=== PATIENT | female | born 1955 | race Caucasian/White ===

== ENCOUNTER 2017-02-02 12:18 | Inpatient (IN) | payer OTHER ==
[~2017-02-02] VITALS: Ht 170.2 cm; Wt 81.1 kg
[2017-02-02] VITALS (20 sets, daily range): BP systolic 95–121; BP diastolic 50–80; PULSE 50–74; RESP 9–35; BMI 30.7
[2017-02-02] MEDS ORDERED: BUTA1CAP38 PO (12:45)
[2017-02-02] MEDS ORDERED: METR250T19 PO (12:46)
[2017-02-02] MEDS ORDERED: LEVO250T9 PO (12:46)
[2017-02-02] MEDS ORDERED: D5-NS + KCL 20 MEQ 1,000 ML IV SCH (14:00)
[2017-02-02] MEDS ORDERED: CEFAZOLIN 2 GM/50 ML (PMX) 50 ML IVPB ONE (14:00)
[2017-02-02] MEDS ORDERED: metroNIDAZOLE 500 MG/NS (PMX) 100 ML IVPB ONE ×2 (14:00→15:27)
[2017-02-02] MEDS ORDERED: MIDAZOLAM 1 MG/ML 2 ML INJ ONE (14:28)
[2017-02-02] MEDS ORDERED: PROPOFOL 100 ML ONE ×2 (14:28→19:09)
[2017-02-02] MEDS ORDERED: ROCURONIUM 50 MG INJ ONE ×3 (14:28→20:34)
[2017-02-02] MEDS ORDERED: morphine SULFATE/PF (10 MG/10 ML) INJ ONE (15:27)
[2017-02-02] MEDS ORDERED: CEFAZOLIN 1 GM INJ ONE ×2 (15:27→19:41)
--- NOTE | 2017-02-02 15:27 | HP ---
Date/Time of Note Date/Time of Note DATE: 02/02/17 TIME: 15:27 Assessment/Plan VTE Prophylaxis VTE Prophylaxis Intervention: SCD's HPI/ROS Admit Date/Time Admit Date/Time February 02, 2017 at 12:18 ROS Hima Mitchell M.D. 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 The mass is complex and predominantly cystic and present since before Aug. Medical history/ROS: all other systems unremarkable. Surgical history: Appy. Medications: 01/14/17 hydrochlorothiazide 25 mg tablet 1 tablet by mouth as directed 01/14/17 Plaquenil 200 mg tablet 1 tablet by mouth BID gardisil Allergies: No active allergies recorded Family Hx: non-contributary Social HX: non-contributary ROS: as above Colonoscopy Physical Examination Vitals (02/02/2017): Weight 201, Height 66.75, BP 120/80, BMI 32.4. General: Alert. HEENT: Pupils are equal, round, reactive to light and accommodation. Neck: Supple with no masses of lymphadenopathy. Breast: Deferred due to recent examination and responsibility of primary care physician. Chest: Clear to auscultation Heart: Normal rhythm with no murmur. Abdomen: Non tender, no ascites nor organomeglay but large pelvic abd mass. Pelvic exam: Central large cystic mass, no cul-de-sac nodularity noted Rectal: confirmatory with pelvic exam. Neurological: Grossly intact Assessment: Pelvic-abdominal mass Plan:Laparoscopic BSO, possible UDx2 possible LSH, possible staging, possible open with cytoreduction. All risks and benefits of this procedure have been discussed in detail with the patient, as well as alternative treatment strategies and their implications. The patient is aware that there is some possibility of a blood transfusion and its associated risks and benefits. She wishes to proceed and gives her informed consent. Hima Mitchell M.D. PMH/Family/Social Social History Smoking Status: Never smoker Exam/Review of Systems Medications Medications Current Medications Potassium Chloride/Dextrose/ Sod Cl (D5-NS + KCl 20 Meq) 1,000 ml @ 100 mls/hr Q10H IV ; Start 02/02/17 at 14:00; Stop 02/02/17 at 23:59 HIMA MITCHELL MD February 02, 2017 15:27
[2017-02-02] MEDS ORDERED: THROMBIN 5000 UNIT VIAL ONE (15:28)
--- NOTE | 2017-02-02 15:28 | HPN ---
Date/Time of Note Date/Time of Note DATE: 02/02/17 TIME: 15:28 Interval H&P Admission Note Pt. seen H&P reviewed: No system changes CALE MITCHELL MD February 02, 2017 15:28
[2017-02-02] MEDS ORDERED: VASOPRESSIN 20 UNITS INJ ONE (15:29)
[2017-02-02] MEDS ORDERED: METHYLENE BLUE 1% 10 ML INJ ONE (15:29)
[2017-02-02] MEDS ORDERED: PHENYLephrine (100 MCG/ML) 5ML SYG ONE ×2 (16:28→19:24)
[2017-02-02] MEDS ORDERED: ONDANSETRON 4 MG INJ IV PRN (17:00)
[2017-02-02] MEDS ORDERED: FENTAnyl 50 MCG/ML VIAL IV PRN ×2 (17:00)
[2017-02-02] MEDS ORDERED: DIPHENHYDRAMINE 50 MG INJ IV PRN ×2 (17:00)
[2017-02-02] MEDS ORDERED: morphine 2 MG INJ IV PRN (17:00)
[2017-02-02] MEDS ORDERED: ALBUMIN HUMAN 5% 250 ML IV PRN (17:00)
[2017-02-02] MEDS ORDERED: NALOXONE (0.4 MG/ML) INJ IV PRN (17:00)
[2017-02-02] MEDS ORDERED: morphine 4 MG/ML VIAL IV PRN (17:00)
[2017-02-02] MEDS ORDERED: LABETALOL HCL 20MG INJ IV PRN (17:00)
[2017-02-02] MEDS ORDERED: MEPERIDINE 25 MG INJ IV PRN (17:00)
[2017-02-02] MEDS ORDERED: NALBUPHINE HCL (10 MG/1 ML) INJ IV PRN (17:00)
[2017-02-02] MEDS ORDERED: EPHEDrine SULFATE 50 MG/5 ML SYG IV PRN (17:00)
[2017-02-02] MEDS ORDERED: HYDROmorphONE 1 MG/ML SYG IV PRN ×2 (17:00)
[2017-02-02] MEDS ORDERED: METOCLOPRAMIDE 10 MG INJ ONE (18:59)
[2017-02-02] MEDS ORDERED: DEXAMETHASONE 4 MG/ML 1 ML INJ ONE (18:59)
[2017-02-02] MEDS ORDERED: ONDANSETRON 4 MG INJ ONE (18:59)
[2017-02-02] MEDS ORDERED: PROPOFOL 20 ML ONE (19:09)
[2017-02-02] MEDS ORDERED: GLYCOPYRROLATE 0.4 MG INJ ONE (21:10)
[2017-02-02] MEDS ORDERED: NEOSTIGMINE 3 MG/3 ML SYRINGE ONE (21:10)
[2017-02-02] MEDS ORDERED: CEFAZOLIN 1 GM in SOD CHLORIDE 0.9% 100 ML IVPB SCH (21:30)
[2017-02-02 21:45] LABS: ADD SCAN DIFF NO
[2017-02-02 21:48] LABS: BASOPHILS % 0.1 % (0.0-2.0); HEMATOCRIT 30.9 % (37.0-47.0); HEMOGLOBIN 9.8 g/dl (12.0-16.0); LYMPHOCYTES # 0.6 10^3/ul (0.8-2.9); LYMPHOCYTES % 5.6 % (15.0-51.0); MEAN CORPUSCULAR HEMOGLOBIN 29.3 pg (29.0-33.0); MEAN CORPUSCULAR HGB CONC 31.7 g/dl (32.0-37.0); MEAN CORPUSCULAR VOLUME 92.2 fl (82.0-101.0); MEAN PLATELET VOLUME 9.3 fl (7.4-10.4); MONOCYTE # 0.6 10^3/ul (0.3-0.9); MONOCYTES % 5.6 % (0.0-11.0); NEUTROPHIL # 9.5 10^3/ul (1.6-7.5); NEUTROPHILS % 88.4 % (39.0-77.0); PLATELET COUNT 184 10^3/UL (140-415); RED BLOOD COUNT 3.35 10^6/ul (4.20-5.40); RED CELL DISTRIBUTION WIDTH 16.6 % (11.5-14.5); WHITE BLOOD COUNT 10.7 10^3/ul (4.8-10.8)
[2017-02-02] MEDS ORDERED: CEFAZOLIN 1 GM/50 ML (PMX) 50 ML IVPB SCH (22:00)
[2017-02-02 22:04] LABS: INR 1.07; PROTIME 13.9 Sec (12.2-14.2); PT RATIO 1.1
[2017-02-02 22:09] LABS: ALBUMIN 2.8 g/dl (3.3-4.9)
[2017-02-02 22:12] LABS: ALBUMIN/GLOBULIN RATIO 0.96; BILIRUBIN,INDIRECT 0.3 mg/dl (0-1.1); BILIRUBIN,TOTAL 0.3 mg/dl (0.2-1.3); TOTAL PROTEIN 5.7 g/dl (6.1-8.1)
[2017-02-02 22:47] LABS: CALCIUM 8.3 mg/dl (8.4-10.2); CREATININE 1.14 mg/dl (0.44-1.00); POTASSIUM 4.3 mmol/L (3.5-5.1)
[2017-02-02] MEDS: POTASSIUM CHLORIDE 20 MEQ in LACTATED RINGER'S 1,000 ML IV SCH (23:38)
[2017-02-03] VITALS (19 sets, daily range): BP systolic 98–145; BP diastolic 49–69; PULSE 51–84; RESP 9–20
[2017-02-03] MEDS: CEFAZOLIN 1 GM/50 ML (PMX) 50 ML IVPB SCH ×3 (03:52→21:20)
[2017-02-03 04:57] LABS: ADD SCAN DIFF NO
[2017-02-03 05:03] LABS: ABNORMAL IP MESSAGE 1; BASOPHILS % 0.1 % (0.0-2.0); HEMATOCRIT 29.1 % (37.0-47.0); HEMOGLOBIN 9.4 g/dl (12.0-16.0); LYMPHOCYTES # 0.6 10^3/ul (0.8-2.9); LYMPHOCYTES % 4.8 % (15.0-51.0); MEAN CORPUSCULAR HEMOGLOBIN 29.6 pg (29.0-33.0); MEAN CORPUSCULAR HGB CONC 32.3 g/dl (32.0-37.0); MEAN CORPUSCULAR VOLUME 91.5 fl (82.0-101.0); MEAN PLATELET VOLUME 9.9 fl (7.4-10.4); MONOCYTE # 0.8 10^3/ul (0.3-0.9); MONOCYTES % 6.4 % (0.0-11.0); NEUTROPHIL # 10.7 10^3/ul (1.6-7.5); NEUTROPHILS % 88.4 % (39.0-77.0); PLATELET COUNT 193 10^3/UL (140-415); RED BLOOD COUNT 3.18 10^6/ul (4.20-5.40); RED CELL DISTRIBUTION WIDTH 17.5 % (11.5-14.5); WHITE BLOOD COUNT 12.1 10^3/ul (4.8-10.8)
[2017-02-03 05:17] LABS: INR 1.05; PROTIME 13.7 Sec (12.2-14.2); PT RATIO 1.1
[2017-02-03 05:26] LABS: ALBUMIN 2.7 g/dl (3.3-4.9)
[2017-02-03 05:27] LABS: POTASSIUM 4.3 mmol/L (3.5-5.1)
[2017-02-03 05:29] LABS: ALBUMIN/GLOBULIN RATIO 0.9; BILIRUBIN,INDIRECT 0.2 mg/dl (0-1.1); BILIRUBIN,TOTAL 0.2 mg/dl (0.2-1.3); CREATININE 1.03 mg/dl (0.44-1.00); TOTAL PROTEIN 5.7 g/dl (6.1-8.1)
[2017-02-03] MEDS: POTASSIUM CHLORIDE 20 MEQ in LACTATED RINGER'S 1,000 ML IV SCH ×3 (06:52→16:58)
[2017-02-03] MEDS: FAMOTIDINE 20 MG INJ IV SCH ×2 (08:22→21:20)
--- NOTE | 2017-02-03 09:08 | OPPN ---
Date/Time of Note Date/Time of Note DATE: 02/03/17 TIME: 09:03 Post-Anesthesia Notes Post-Anesthesia Note Last documented vital signs Vital Signs Date Time Temp Pulse Resp B/P Pulse Ox O2 Delivery O2 Flow Rate FiO2 02/03/17 08:00 Nasal Cannula 2.0 02/03/17 07:00 97.8 69 15 111/54 100 Activity: WNL Respiratory function: WNL Cardiovascular function: WNL Mental status: Baseline Pain reasonably controlled: Yes Hydration appropriate: Yes Nausea/Vomiting absent: Yes Comments S/P Laparoscopic to Open abdominal total Hysterectomy and BSO, Combined spinal and GE used for anesthesia technique, intrathecal Duramorph was given for post- Op Pain management, Patient is doping fine, Pain is well controlled on the POD# 1 vital signs are stable she is afebrile, no motor or sensory deficit, and no nausea or vomiting reported. patient will be followed by her primary team. UCHE WILSON MD February 03, 2017 09:08
--- NOTE | 2017-02-03 13:09 | HP ---
DATE OF ADMISSION: 02/02/2017 HISTORY OF PRESENT ILLNESS: The patient is a 61-year-old female who denies any past medical history . The patient started to experience abdominal pain which radiates in the back in August 2016; how ever, patient sought alternative medicine like acupuncture. Eventually the patient went to primary care physician, and the patient was diagnosed with locally advanced ovarian cancer with pelvic mass. The patient was evaluated by Dr. Paul, and was brought to the hospital and underwent surgery, laparoscopic to open abdominal total hysterectomy with BSO. The patient was admitted for postoperat nikolai intensive care unit. During the examination in the intensive care unit, the patient is breathin g comfortably on supplemental oxygen 2 liters, complains of a sore throat. Denies any chest pain, d enies any shortness of breath. PAST MEDICAL HISTORY: Per HPI. PAST SURGICAL HISTORY: Patient is status post appendectomy when she was 15 years old and status pos t surgery for varicose veins in August 2016. FAMILY HISTORY: Negative for any history of gynecological cancer. SOCIAL HISTORY: The patient lives with her family. The patient denies tobacco use, denies any alco hol use, denies any illicit drug use. ALLERGIES: NO KNOWN ALLERGIES. HOME MEDICATIONS: Include: 1. Fioricet 2. Levaquin. 3. Flagyl. REVIEW OF SYSTEMS: A 12-point review of systems is negative unless what is mentioned in the HPI. PHYSICAL ASSESSMENT: GENERAL: Well-developed, well-nourished female, currently is awake, alert. VITAL SIGNS: Temperature is 97.9, pulse 62, blood pressure is 106/52, respiratory rate 14, oxygen s aturation 100% on 2 L nasal cannula. HEENT: Head is atraumatic, normocephalic. Pupils equal, round, reactive to light and accommodation . Oral mucosa is pink and moist. NECK: Supple, no cervical lymphadenopathy, no thyromegaly. CHEST: Lungs clear bilaterally. There is no rhonchi, wheezes, or rales noted. CARDIOVASCULAR: Normal S1, S2. No murmurs, gallops, clicks, rubs noted. ABDOMEN: Status post surgery with laparoscopic and midline incision intact and left lower quadrant VANDANA with serosanguinous drainage. The patient also has Cool catheter with yellow urine. Bowel soun ds hypoactive. EXTREMITIES: There is no edema, clubbing, cyanosis. Pulses equal bilaterally 2+. SKIN: There is no rash, petechiae noted. NEUROLOGIC: The patient is awake, alert and oriented x4. No focal deficits noted. Motor strength 5/5 in all extremities. ASSESSMENT AND PLAN: Locally advanced ovarian cancer with pelvic mass, status post surgery. Will c ontinue IV fluids. Continue Zofran p.r.n. for nausea and Dilaudid p.r.n. for pain. Continue antibi otics, Pepcid for peptic ulcer disease prophylaxis. Continue to follow up surgical recommendations. Monitor electrolytes. Further recommendations based on clinical course. Plan of care discussed w roseanne Bates. Dictated By: JAMILA SAUER FILTER PULP WASHER for KIANA BATES MD SR/NTS Conf#: [id number] DID#: [id number]
[2017-02-03] MEDS: HYDROmorphONE 1 MG/ML SYG IV PRN ×2 (18:11→21:12)
[2017-02-03] MEDS: ONDANSETRON 4 MG INJ IV PRN (21:20)
[2017-02-04] MEDS: POTASSIUM CHLORIDE 20 MEQ in LACTATED RINGER'S 1,000 ML IV SCH ×4 (00:33→23:14)
[2017-02-04] MEDS: ONDANSETRON 4 MG INJ IV PRN ×4 (05:59→23:06)
[2017-02-04] MEDS: HYDROmorphONE 1 MG/ML SYG IV PRN ×4 (06:00→23:06)
[2017-02-04 07:08] LABS: ADD SCAN DIFF NO
[2017-02-04 07:17] LABS: BASOPHILS % 0.2 % (0.0-2.0); EOSINOPHILS % 0.4 % (0.0-7.0); HEMATOCRIT 27.5 % (37.0-47.0); HEMOGLOBIN 8.7 g/dl (12.0-16.0); LYMPHOCYTES % 11.1 % (15.0-51.0); MEAN CORPUSCULAR HEMOGLOBIN 29.2 pg (29.0-33.0); MEAN CORPUSCULAR HGB CONC 31.6 g/dl (32.0-37.0); MEAN CORPUSCULAR VOLUME 92.3 fl (82.0-101.0); MEAN PLATELET VOLUME 10.2 fl (7.4-10.4); MONOCYTE # 0.8 10^3/ul (0.3-0.9); MONOCYTES % 9.7 % (0.0-11.0); NEUTROPHIL # 6.7 10^3/ul (1.6-7.5); NEUTROPHILS % 78.4 % (39.0-77.0); PLATELET COUNT 192 10^3/UL (140-415); RED BLOOD COUNT 2.98 10^6/ul (4.20-5.40); RED CELL DISTRIBUTION WIDTH 17.1 % (11.5-14.5); WHITE BLOOD COUNT 8.6 10^3/ul (4.8-10.8)
[2017-02-04 07:38] LABS: CALCIUM 8.4 mg/dl (8.4-10.2); CREATININE 0.99 mg/dl (0.44-1.00); POTASSIUM 4.2 mmol/L (3.5-5.1)
[2017-02-04 08:28] VITALS: BP 129/63; RESP 18
[2017-02-04] MEDS: FAMOTIDINE 20 MG INJ IV SCH ×2 (10:10→20:26)
[2017-02-04 19:49] VITALS: BP 129/64; RESP 20
--- NOTE | 2017-02-04 21:18 | PN ---
DATE: SUBJECTIVE: Follow up on surgery for locally advanced colon cancer. The patient denies any chest p ain or shortness of breath. NG tube in place. The patient has good urine output. No reported feve r or chills. PHYSICAL EXAMINATION: GENERAL: Revealed the patient to be awake, alert. VITAL SIGNS: Temperature 98.1, pulse 90, respiration 18, blood pressure 129/63, O2 saturation 95% t o 2 liters nasal cannula. NECK: No mass. CHEST: Fairly clear. CARDIOVASCULAR: Regular rate and rhythm. S1, S2 normal. No murmur. ABDOMEN: The patient is status post surgery. EXTREMITIES: No edema. Pedal pulses palpable. LABORATORY DATA: Sodium 138, potassium 4.2, BUN 10, creatinine 0.9, glucose 82. PLAN: Continue current postoperative care. We will continue to monitor electrolytes. The patient remains on IV Pepcid for GI prophylaxis, SCDs for DVT prophylaxis. Plan of care discussed with the patient's . Dictated By: KIANA BATES MD AB/NTS Conf#: [id number] DID#: [id number] CC: CALE MITCHELL MD;*EndCC*
--- NOTE | 2017-02-04 22:06 | OPR ---
Date/Time of Note Date/Time of Note DATE: 02/04/17 TIME: 22:05 Operative Report Free Text/Dictation 5 OPERATIVE REPORT [facility] Name: Monica Hall Medical Date: 02/02/17 Preoperative Diagnosis: 1- Pelvic mass 2- Elevated CA-125 Postoperative Diagnosis: 1- Stage IIc ovarian cancer pathology pending 2- Hydroureter Procedures: 1- Extended hysterectomy with bilateral salpingoophorectomy 2- Bilateral ureteral dissection with repositioning / ureterolysis 3- Staging with retroperitoneal lymph node dissection 4- Laparoscopy Surgeon: Dr. Paul Payroll Analyst: Dr. Dumont Anesthesia: General Indications for surgery: The patient is a 61- year old female with a large benign adnexal mass vs primary ovarian cancer on the basis of physical findings with elevated markers, radiographic findings, and symptoms of whom an initial laparoscopy and possible cytoreduction was undertaken after addressing all options with risks and benefits. Findings and Summary After laparoscopy the large cystic mass per CT was noted to be densely adherent to the sidewall and sigmoid colon and after opening and exploration we removed minimal ascites and noted upper abdominal disease involving the Name: Monica Hall Medical omentum possibly which was addressed and the pelvic disease was resected. The retroperitoneal nodes were not enlarged. At the completion of the procedure the patient was rendered visibly free of disease. Procedure: After being prepped and draped in the usual manner a 5-millimeter trocar was placed in the LUQ and a massive cystic mass was noted with no metastatic disease. Subsequently two 5-millimeter trocars were placed laterally to the umbilical level and the mass was suctioned with a needle to wall suction and 4 liters was removed without incident or spillage, and the opening was closed with and endo-loop. The residual large mass was noted to be densely adherent to the sidewall on the left with complete obliteration of the cul-de-sac and also densely adherent to the sigmoid colon, and so a midline skin incision was made of appropriate length. The electrocautery was then used to dissect thru the adipose tissue to the level of the fascia. The fascia was incised sharply and the peritoneum identified. At this time the peritoneum was elevated and incised with a Metzenbaum scissors. Upon entering the peritoneal cavity 200 cc of ascetic fluid was removed. We then searched the abdominal and pelvic contents and found that the left upper quadrant questionable millimeter metastatic disease involved the greater omentum (rank 1) with no other upper abdominal disease. The primary pelvic lesion was the aforementioned large left pelvic mass densely adherent to the sidewall and sigmoid colon with obliteration of the cul-de-sac . We then placed an aortic Bellfower retractor. At this time, the pelvic disease was addressed. Because of the extensive disease involving the reproductive organs as well as the pelvic peritoneum all encased an en-bloc procedure was planned with ureteral dissection and repositioning to facilitate resection. Initially the right round ligament was transected with a Ligasure uneventfully. The retroperitoneal area was opened and the ureter was identified. The ureter were dissected with a right angle clamp with some hydroureter and lateralized and then further repositioned with a peanut and digital dissection due Name: [facility] to probable adherent metastatic disease on the peritoneum and adjacent mass from the left side. After repositioning the ureter laterally away from the adherent peritoneum that was involved with disease, the infundibulopelvic ligament was transected by cauterizing with a Ligasure and then clamping, transecting and suturing with 0- Vicryl suture. Attention was then addressed contralaterally in that the left round ligament was transected with a Ligasure uneventfully. The retroperitoneal area was opened and the ureter was identified and an extreme hydroureter with discolored ureter was noted. The ureter were dissected with a right angle clamp and lateralized and then further repositioned with a peanut and digitally due to adherent metastatic disease on the peritoneum and adjacent mass with stricture distally. After repositioning the ureter laterally away from the adherent peritoneum that was densely involved with disease, the IP ligament was transected by cauterizing with a Ligasure and then clamping, transecting and suturing with 0- Vicryl suture. The bladder flap was then developed with a Bovie and Ligasure. At this time a large right angle clamp was used to dissect the ureters bilaterally, away from the uterine vessels in a manner used during a type-2 hysterectomy, with care due to the compromised vasculature and anatomy. The uterine arteries were clipped and cut, along with the veins. The ureters were then tunneled through the thinned parametria laterally due to the mass distorting the anatomy with a right angle clamp, and the parametrial pedicles were transected with an endo- JOHNNY bilaterally. The bladder pillars were then dissected and clipped, after which the ureters were confirmed to be undamaged. Hence, remaining parametrial tissue was transected with the Ligasure and the uterosacral ligaments were clamped with Jose A clamps. The rectum and colon were also mobilized considerably from the lower uterine segment and cervix, allowing the rectum to be from the cul-de-sac and the confluent disease to be included with the specimen, leaving the rectum deperitonealized but intact as proven by inserting and EEA sizer. The uterus was from the cervix and the cervix closed with figure of eight sutures using 0-vicryl. The [facility] returned a primary ovarian cancer, poorly differentiated. After confirming hemostasis we addressed the lymph node dissection since we had adequate exposure. Initially lymph node tissue adjacent to the right external iliac artery and vein, hypogastric artery and vein, as well as obturator fossa were removed with sharp and blunt dissection, using the laparoscopic already opened Omni for hemostasis and lymphostasis. The dissection was continued to include steven tissue adjacent to the common iliac vessels. The retractors were adjusted and steven tissue adjacent to the vena cava, as well as aorto-caval nodes were removed using identical technique. At this time we adjusted the retractors and lymph node tissue adjacent to the left external iliac artery and vein, hypogastric artery and vein, as well as obturator fossa were removed with sharp and blunt dissection, using the Omni and Ligasure for hemostasis and lymphostasis. The dissection was continued to include steven tissue adjacent to the common iliac vessels. Subsequently, the retractors were adjusted and steven tissue adjacent to the aorta were dissected using sharp and blunt dissection with the Ligasure for hemostasis and lymphostasis. At this time, the omentum was dissected from the transverse colon with sharp dissection and electrocautery when possible. Vessels to large to be managed by electrocautery or too close to the colon were hemoclipped and transected. This procedure was carried out throughout the length of the omentum and transverse colon. Larger vascular pedicles were divided using the Ligasure or the Gyrus bipolar cutting forceps if the pedicle was vascular but somewhat skeletonized. Oozing areas in the cautery line with either devise were either clipped, recauterized, or sutured with 3-0 silk. The specimen was removed en-bloc, after which the transverse colon was thoroughly inspected and any sero-muscular defects encountered were repaired with interrupted 3-0 Silk suture. At this time, after all packing was removed, the abdomen thoroughly irrigated, hemostasis confirmed. Additional biopsies were taken of the gutter areas. The bowel was inspected and free of any metastatic disease. At this time, after all packing was removed, the abdomen thoroughly irrigated, Name[facility] hemostasis confirmed, and a Pelvic Rico drain was placed. A figure of eight suture was placed at the caudal apex of the incision with 1- Vicryl suture and used for exposure by elevating with a Pean clamp. Continuous 1 Vicryl suture was used from the rostral apex and run to the supra-pubic area. The final suture was tied appropriately, after which the figure of eight was tied. The subcutaneous tissue was irrigated and the skin was closed with a deep layer of 3 -0 Vicryl suture and skin clips. The sponge, needle, and instrument were correct two times. The estimated blood loss was 400 ml. The patient tolerated the procedure well and left the OR in good condition. It should be noted that all visible disease was resected or ablated. Cale Paul M.D. CALE PAUL MD February 04, 2017 22:06
--- NOTE | 2017-02-04 22:10 | PN ---
Date/Time of Note Date/Time of Note DATE: 02/04/17 TIME: 22:06 Assessment/Plan VTE Prophylaxis VTE Prophylaxis Intervention: SCD's Lines/Catheters IV Catheter Type (from Nrsg): Peripheral IV Urinary Cath still in place: Yes Reason Cath still needed: urinary retention, other (indicate) Assessment/Plan Assessment/Plan A- doing well P- mobilize and await GI FCT. Must leave in Cool Subjective 24 Hr Interval Summary Free Text/Dictation Less pain but not OOB, no flatus. Exam/Review of Systems Vital Signs Vitals Vital Signs Date Time Temp Pulse Resp B/P Pulse Ox O2 Delivery O2 Flow Rate FiO2 02/04/17 19:49 98.6 86 20 129/64 96 02/04/17 07:35 Nasal Cannula 2.0 Intake and Output 02/03/17 02/03/17 02/04/17 15:00 23:00 07:00 Intake Total 670 ml 800 ml 2750 ml Output Total 135 ml 90 ml 1725 ml Balance 535 ml 710 ml 1025 ml Exam Resp- clear CVS- NSR Abd- NT soft and clean EXT:TN no edema Results Result Diagram: 02/04/17 0600 02/04/17 0600 Results 24 hrs Laboratory Tests Test 02/04/17 00:59 02/04/17 06:00 Bedside Glucose 87 White Blood Count 8.6 # Red Blood Count 2.98 L Hemoglobin 8.7 L Hematocrit 27.5 L Mean Corpuscular Volume 92.3 Mean Corpuscular Hemoglobin 29.2 Mean Corpuscular Hemoglobin Concent 31.6 L Red Cell Distribution Width 17.1 H Platelet Count 192 Mean Platelet Volume 10.2 Neutrophils % 78.4 H Lymphocytes % 11.1 L Monocytes % 9.7 Eosinophils % 0.4 Basophils % 0.2 Nucleated Red Blood Cells % 0.0 Neutrophils # 6.7 Lymphocytes # 1.0 Monocytes # 0.8 Eosinophils # 0.0 Basophils # 0.0 Nucleated Red Blood Cells # 0.0 Sodium Level 138 Potassium Level 4.2 Chloride Level 107 Carbon Dioxide Level 25 Anion Gap 10 Blood Urea Nitrogen 10 Creatinine 0.99 Glucose Level 82 # Calcium Level 8.4 Medications Medications Current Medications Hydromorphone HCl (Dilaudid) 0.5 mg Q2H PRN IV PAIN LEVEL 6-10 Last administered on 02/04/17t 16:48; Admin Dose 0.5 MG; Start 02/02/17 at 21:30 Ondansetron HCl (Zofran Inj) 4 mg Q6H PRN IV NAUSEA AND/OR VOMITING Last administered on 02/04/17 16:47; Admin Dose 4 MG; Start 02/02/17 at 21:30 Famotidine 20 mg 20 mg Q12 IV Last administered on 02/04/17 20:26; Admin Dose 20 MG; Start 02/03/17 at 09:00 Potassium Chloride/Lactated Ringer's (KCl/Lr) 1,010 ml @ 100 mls/hr Q10H6M IV Last administered on 02/04/17 14:41; Admin Dose 100 MLS/HR; Start 02/02/17 at 21:11 CALE MITCHELL MD February 04, 2017 22:10
[2017-02-05 05:15] LABS: ADD SCAN DIFF NO
[2017-02-05 05:20] LABS: BASOPHILS % 0.1 % (0.0-2.0); EOSINOPHILS # 0.2 10^3/ul (0.0-0.5); EOSINOPHILS % 2.2 % (0.0-7.0); HEMATOCRIT 27.6 % (37.0-47.0); HEMOGLOBIN 8.7 g/dl (12.0-16.0); LYMPHOCYTES # 1.1 10^3/ul (0.8-2.9); LYMPHOCYTES % 13.1 % (15.0-51.0); MEAN CORPUSCULAR HEMOGLOBIN 28.7 pg (29.0-33.0); MEAN CORPUSCULAR HGB CONC 31.5 g/dl (32.0-37.0); MEAN CORPUSCULAR VOLUME 91.1 fl (82.0-101.0); MEAN PLATELET VOLUME 9.6 fl (7.4-10.4); MONOCYTE # 0.9 10^3/ul (0.3-0.9); MONOCYTES % 10.3 % (0.0-11.0); NEUTROPHIL # 6.2 10^3/ul (1.6-7.5); NEUTROPHILS % 74.1 % (39.0-77.0); PLATELET COUNT 180 10^3/UL (140-415); RED BLOOD COUNT 3.03 10^6/ul (4.20-5.40); RED CELL DISTRIBUTION WIDTH 16.1 % (11.5-14.5); WHITE BLOOD COUNT 8.3 10^3/ul (4.8-10.8)
[2017-02-05 05:41] LABS: POTASSIUM 3.9 mmol/L (3.5-5.1)
[2017-02-05 05:44] LABS: CREATININE 0.83 mg/dl (0.44-1.00)
[2017-02-05 05:45] LABS: CALCIUM 8.3 mg/dl (8.4-10.2)
[2017-02-05] MEDS: HYDROmorphONE 1 MG/ML SYG IV PRN ×3 (06:46→20:28)
[2017-02-05] MEDS: ONDANSETRON 4 MG INJ IV PRN ×2 (06:47→20:28)
[2017-02-05 07:00] VITALS: BP 129/66; RESP 18
[2017-02-05] MEDS: POTASSIUM CHLORIDE 20 MEQ in LACTATED RINGER'S 1,000 ML IV SCH ×2 (08:12→18:34)
[2017-02-05] MEDS: FAMOTIDINE 20 MG INJ IV SCH ×2 (08:36→20:56)
--- NOTE | 2017-02-05 16:29 | PN ---
Date/Time of Note Date/Time of Note DATE: 02/05/17 TIME: 16:26 Assessment/Plan VTE Prophylaxis VTE Prophylaxis Intervention: SCD's Lines/Catheters IV Catheter Type (from Nrs): Peripheral IV Urinary Cath still in place: Yes Reason Cath still needed: urinary retention Assessment/Plan Chief Complaint/Hosp Course ASSESSMENT AND PLAN: - Locally advanced ovarian cancer with pelvic mass, status post surgery. Will continue IV fluids. Continue Zofran p.r.n. for nausea and Dilaudid p.r.n. for pain. Continue antibiotics, Pepcid for peptic ulcer disease prophylaxis. Continue to follow up surgical recommendations. Monitor electrolytes. Continue Cool catheter. Further recommendations based on clinical course. Plan of care discussed with Dr. Valentin. Problems: Subjective 24 Hr Interval Summary Free Text/Dictation Patient with - bowel sounds and negative flatus, remains hemodynamically stable , pain is well controlled. Exam/Review of Systems Vital Signs Vitals Vital Signs Date Time Temp Pulse Resp B/P Pulse Ox O2 Delivery O2 Flow Rate FiO2 02/05/17 07:00 97.7 79 18 129/66 95 02/04/17 07:35 Nasal Cannula 2.0 Intake and Output 02/04/17 02/04/17 02/05/17 15:00 23:00 07:00 Intake Total 450 ml 2300 ml Output Total 1460 ml 1725 ml Balance -1010 ml 575 ml Exam GENERAL: Well-developed, well-nourished female, currently is awake, alert. HEENT: Head is atraumatic, normocephalic. Pupils equal, round, reactive to light and accommodation. Oral mucosa is pink and moist. NECK: Supple, no cervical lymphadenopathy, no thyromegaly. CHEST: Lungs clear bilaterally. There is no rhonchi, wheezes, or rales noted. CARDIOVASCULAR: Normal S1, S2. No murmurs, gallops, clicks, rubs noted. ABDOMEN: Status post surgery with laparoscopic and midline incision intact and left lower quadrant VANDANA with serosanguinous drainage. The patient also has Cool catheter with yellow urine. Bowel sounds hypoactive. EXTREMITIES: There is no edema, clubbing, cyanosis. Pulses equal bilaterally 2 +. SKIN: There is no rash, petechiae noted. NEUROLOGIC: The patient is awake, alert and oriented x4. Results Result Diagram: 02/05/17 0450 02/05/17 0445 Results 24 hrs Laboratory Tests Test 02/05/17 04:45 02/05/17 04:50 Sodium Level 137 Potassium Level 3.9 Chloride Level 101 Carbon Dioxide Level 25 Anion Gap 15 Blood Urea Nitrogen 9 Creatinine 0.83 Glucose Level 76 Calcium Level 8.3 L White Blood Count 8.3 Red Blood Count 3.03 L Hemoglobin 8.7 L Hematocrit 27.6 L Mean Corpuscular Volume 91.1 Mean Corpuscular Hemoglobin 28.7 L Mean Corpuscular Hemoglobin Concent 31.5 L Red Cell Distribution Width 16.1 H Platelet Count 180 Mean Platelet Volume 9.6 Neutrophils % 74.1 Lymphocytes % 13.1 L Monocytes % 10.3 Eosinophils % 2.2 Basophils % 0.1 Nucleated Red Blood Cells % 0.0 Neutrophils # 6.2 Lymphocytes # 1.1 Monocytes # 0.9 Eosinophils # 0.2 Basophils # 0.0 Nucleated Red Blood Cells # 0.0 Medications Medications Current Medications Hydromorphone HCl (Dilaudid) 0.5 mg Q2H PRN IV PAIN LEVEL 6-10 Last administered on 02/05/17 14:43; Admin Dose 0.5 MG; Start 02/02/17 at 21:30 Ondansetron HCl (Zofran Inj) 4 mg Q6H PRN IV NAUSEA AND/OR VOMITING Last administered on 02/05/17 06:47; Admin Dose 4 MG; Start 02/02/17 at 21:30 Famotidine 20 mg 20 mg Q12 IV Last administered on 02/05/17 08:36; Admin Dose 20 MG; Start 02/03/17 at 09:00 Potassium Chloride/Lactated Ringer's (KCl/Lr) 1,010 ml @ 100 mls/hr Q10H6M IV Last administered on 02/05/17 08:12; Admin Dose 100 MLS/HR; Start 02/02/17 at 21:11 JAMILA SAUER February 05, 2017 16:29
[2017-02-05 19:22] VITALS: BP 151/73; RESP 20
[2017-02-06] MEDS: POTASSIUM CHLORIDE 20 MEQ in LACTATED RINGER'S 1,000 ML IV SCH ×2 (04:41→14:42)
[2017-02-06 05:38] LABS: ADD SCAN DIFF NO
[2017-02-06 05:45] LABS: BASOPHILS % 0.3 % (0.0-2.0); EOSINOPHILS # 0.2 10^3/ul (0.0-0.5); EOSINOPHILS % 3.4 % (0.0-7.0); HEMATOCRIT 27.6 % (37.0-47.0); LYMPHOCYTES % 14.2 % (15.0-51.0); MEAN CORPUSCULAR HEMOGLOBIN 29.6 pg (29.0-33.0); MEAN CORPUSCULAR HGB CONC 32.6 g/dl (32.0-37.0); MEAN CORPUSCULAR VOLUME 90.8 fl (82.0-101.0); MEAN PLATELET VOLUME 9.8 fl (7.4-10.4); MONOCYTE # 0.7 10^3/ul (0.3-0.9); MONOCYTES % 9.9 % (0.0-11.0); NEUTROPHIL # 4.8 10^3/ul (1.6-7.5); NEUTROPHILS % 71.8 % (39.0-77.0); PLATELET COUNT 213 10^3/UL (140-415); RED BLOOD COUNT 3.04 10^6/ul (4.20-5.40); RED CELL DISTRIBUTION WIDTH 15.5 % (11.5-14.5); WHITE BLOOD COUNT 6.7 10^3/ul (4.8-10.8)
[2017-02-06 06:00] LABS: POTASSIUM 3.8 mmol/L (3.5-5.1)
[2017-02-06 06:03] LABS: CREATININE 0.77 mg/dl (0.44-1.00)
[2017-02-06 06:04] LABS: CALCIUM 8.5 mg/dl (8.4-10.2)
[2017-02-06] MEDS: ONDANSETRON 4 MG INJ IV PRN ×2 (06:56→21:19)
[2017-02-06] MEDS: HYDROmorphONE 1 MG/ML SYG IV PRN ×3 (06:56→21:14)
[2017-02-06 07:00] VITALS: BP 141/66; RESP 18
[2017-02-06] MEDS: FAMOTIDINE 20 MG INJ IV SCH ×2 (08:31→21:14)
--- NOTE | 2017-02-06 14:53 | PN ---
Date/Time of Note Date/Time of Note DATE: 02/06/17 TIME: 14:50 Assessment/Plan VTE Prophylaxis VTE Prophylaxis Intervention: SCD's Lines/Catheters IV Catheter Type (from Nrs): Peripheral IV Urinary Cath still in place: Yes Assessment/Plan Assessment/Plan - Locally advanced ovarian cancer with pelvic mass, status post surgery. siting up in chair- tolerated - IV fluids. - per sx - NGT to suction- 200 cc greenish - Continue Zofran p.r.n. for nausea - Dilaudid p.r.n. for pain. - Pepcid for peptic ulcer disease prophylaxis. - Continue Cool catheter. Further recommendations based on clinical course. Plan of care discussed with Dr. Valentin. Subjective 24 Hr Interval Summary Free Text/Dictation alert, NPO, NGT to suction- 200 cc greenish, febrile, dw staff Exam/Review of Systems Vital Signs Vitals Vital Signs Date Time Temp Pulse Resp B/P Pulse Ox O2 Delivery O2 Flow Rate FiO2 02/06/17 07:00 98.7 73 18 141/66 96 02/04/17 07:35 Nasal Cannula 2.0 Intake and Output 02/05/17 02/05/17 02/06/17 15:00 23:00 07:00 Intake Total 0 ml 1010 ml 50854 ml Output Total 910 ml 1860 ml Balance 0 ml 100 ml 8190 ml Exam Constitutional: alert, well developed ENMT: nl external ears & nose Respiratory: clear to auscultation Cardiovascular: nl pulses Gastrointestinal: non-tender, soft Musculoskeletal: nl extremities to inspection Extremities: normal pulses Neurological: other Results Result Diagram: 02/06/17 0442 02/06/17 0442 Results 24 hrs Laboratory Tests Test 02/06/17 04:42 White Blood Count 6.7 Red Blood Count 3.04 L Hemoglobin 9.0 L Hematocrit 27.6 L Mean Corpuscular Volume 90.8 Mean Corpuscular Hemoglobin 29.6 Mean Corpuscular Hemoglobin Concent 32.6 Red Cell Distribution Width 15.5 H Platelet Count 213 Mean Platelet Volume 9.8 Neutrophils % 71.8 Lymphocytes % 14.2 L Monocytes % 9.9 Eosinophils % 3.4 Basophils % 0.3 Nucleated Red Blood Cells % 0.0 Neutrophils # 4.8 Lymphocytes # 1.0 Monocytes # 0.7 Eosinophils # 0.2 Basophils # 0.0 Nucleated Red Blood Cells # 0.0 Sodium Level 139 Potassium Level 3.8 Chloride Level 101 Carbon Dioxide Level 26 Anion Gap 16 Blood Urea Nitrogen 10 Creatinine 0.77 Glucose Level 69 L Calcium Level 8.5 Medications Medications Current Medications Hydromorphone HCl (Dilaudid) 0.5 mg Q2H PRN IV PAIN LEVEL 6-10 Last administered on 02/06/17 12:30; Admin Dose 0.5 MG; Start 02/02/17 at 21:30 Ondansetron HCl (Zofran Inj) 4 mg Q6H PRN IV NAUSEA AND/OR VOMITING Last administered on 02/06/17 06:56; Admin Dose 4 MG; Start 02/02/17 at 21:30 Famotidine 20 mg 20 mg Q12 IV Last administered on 02/06/17 08:31; Admin Dose 20 MG; Start 02/03/17 at 09:00 Potassium Chloride/Lactated Ringer's (KCl/Lr) 1,010 ml @ 100 mls/hr Q10H6M IV Last administered on 02/06/17 14:42; Admin Dose 100 MLS/HR; Start 02/02/17 at 21:11 KEV SANCHEZ February 06, 2017 14:53
[2017-02-06 16:00] VITALS: BP 138/78; PULSE 82; RESP 18
--- NOTE | 2017-02-06 17:59 | PN ---
Date/Time of Note Date/Time of Note DATE: 02/06/17 TIME: 17:56 Assessment/Plan VTE Prophylaxis VTE Prophylaxis Intervention: LMWH Lines/Catheters IV Catheter Type (from Nrsg): Peripheral IV Urinary Cath still in place: Yes Reason Cath still needed: other (indicate) Assessment/Plan Chief Complaint/Hosp Course Ovarian cancer/MMMT Problems: Assessment/Plan A- improving P- mobilize more and await bowel fct Subjective 24 Hr Interval Summary Free Text/Dictation OOB a bit more and less pain but no flatus. Exam/Review of Systems Vital Signs Vitals Vital Signs Date Time Temp Pulse Resp B/P Pulse Ox O2 Delivery O2 Flow Rate FiO2 02/06/17 07:00 98.7 73 18 141/66 96 02/04/17 07:35 Nasal Cannula 2.0 Intake and Output 02/05/17 02/05/17 02/06/17 15:00 23:00 07:00 Intake Total 0 ml 1010 ml 44198 ml Output Total 910 ml 1860 ml Balance 0 ml 100 ml 8190 ml Exam Resp- clear CVS- NSR Abd- soft NT Ext- NT no edema Results Result Diagram: 02/06/17 0442 02/06/17 0442 Results 24 hrs Laboratory Tests Test 02/06/17 04:42 White Blood Count 6.7 Red Blood Count 3.04 L Hemoglobin 9.0 L Hematocrit 27.6 L Mean Corpuscular Volume 90.8 Mean Corpuscular Hemoglobin 29.6 Mean Corpuscular Hemoglobin Concent 32.6 Red Cell Distribution Width 15.5 H Platelet Count 213 Mean Platelet Volume 9.8 Neutrophils % 71.8 Lymphocytes % 14.2 L Monocytes % 9.9 Eosinophils % 3.4 Basophils % 0.3 Nucleated Red Blood Cells % 0.0 Neutrophils # 4.8 Lymphocytes # 1.0 Monocytes # 0.7 Eosinophils # 0.2 Basophils # 0.0 Nucleated Red Blood Cells # 0.0 Sodium Level 139 Potassium Level 3.8 Chloride Level 101 Carbon Dioxide Level 26 Anion Gap 16 Blood Urea Nitrogen 10 Creatinine 0.77 Glucose Level 69 L Calcium Level 8.5 Medications Medications Current Medications Hydromorphone HCl (Dilaudid) 0.5 mg Q2H PRN IV PAIN LEVEL 6-10 Last administered on 02/06/17t 12:30; Admin Dose 0.5 MG; Start 02/02/17 at 21:30 Ondansetron HCl (Zofran Inj) 4 mg Q6H PRN IV NAUSEA AND/OR VOMITING Last administered on 02/06/17 06:56; Admin Dose 4 MG; Start 02/02/17 at 21:30 Famotidine 20 mg 20 mg Q12 IV Last administered on 02/06/17 08:31; Admin Dose 20 MG; Start 02/03/17 at 09:00 Potassium Chloride/Lactated Ringer's (KCl/Lr) 1,010 ml @ 100 mls/hr Q10H6M IV Last administered on 02/06/17 14:42; Admin Dose 100 MLS/HR; Start 02/02/17 at 21:11 CALE MITCHELL MD February 06, 2017 17:59
[2017-02-06 19:18] VITALS: BP 152/68; RESP 18
[2017-02-07] MEDS: POTASSIUM CHLORIDE 20 MEQ in LACTATED RINGER'S 1,000 ML IV SCH ×2 (02:16→13:18)
[2017-02-07] MEDS: ONDANSETRON 4 MG INJ IV PRN ×2 (05:10→22:14)
[2017-02-07] MEDS: HYDROmorphONE 1 MG/ML SYG IV PRN ×3 (05:10→22:19)
[2017-02-07 05:39] LABS: ADD SCAN DIFF NO
[2017-02-07 05:42] LABS: BASOPHILS % 0.5 % (0.0-2.0); EOSINOPHILS # 0.3 10^3/ul (0.0-0.5); EOSINOPHILS % 4.4 % (0.0-7.0); HEMATOCRIT 29.3 % (37.0-47.0); HEMOGLOBIN 9.6 g/dl (12.0-16.0); LYMPHOCYTES % 17.2 % (15.0-51.0); MEAN CORPUSCULAR HEMOGLOBIN 29.6 pg (29.0-33.0); MEAN CORPUSCULAR HGB CONC 32.8 g/dl (32.0-37.0); MEAN CORPUSCULAR VOLUME 90.4 fl (82.0-101.0); MEAN PLATELET VOLUME 9.6 fl (7.4-10.4); MONOCYTE # 0.7 10^3/ul (0.3-0.9); NEUTROPHIL # 3.7 10^3/ul (1.6-7.5); NEUTROPHILS % 64.5 % (39.0-77.0); PLATELET COUNT 242 10^3/UL (140-415); RED BLOOD COUNT 3.24 10^6/ul (4.20-5.40); RED CELL DISTRIBUTION WIDTH 14.8 % (11.5-14.5); WHITE BLOOD COUNT 5.7 10^3/ul (4.8-10.8)
[2017-02-07 06:04] LABS: CALCIUM 8.8 mg/dl (8.4-10.2); CREATININE 0.75 mg/dl (0.44-1.00)
[2017-02-07 07:49] VITALS: BP 131/76; RESP 19
[2017-02-07] MEDS: FAMOTIDINE 20 MG INJ IV SCH ×2 (10:24→22:21)
--- NOTE | 2017-02-07 15:00 | PN ---
Date/Time of Note Date/Time of Note DATE: 02/07/17 TIME: 14:57 Assessment/Plan VTE Prophylaxis VTE Prophylaxis Intervention: SCD's Lines/Catheters IV Catheter Type (from Nrsg): Peripheral IV Urinary Cath still in place: Yes Reason Cath still needed: urinary retention Assessment/Plan Chief Complaint/Hosp Course Ovarian cancer/MMMT Problems: Assessment/Plan A- doing better P- bladder train and try to d/c NGT Subjective 24 Hr Interval Summary Free Text/Dictation + flatus and feels better. OOB more. Exam/Review of Systems Vital Signs Vitals Vital Signs Date Time Temp Pulse Resp B/P Pulse Ox O2 Delivery O2 Flow Rate FiO2 02/07/17 07:49 98.0 74 19 131/76 98 02/06/17 20:34 Nasal Cannula 2.0 Intake and Output 02/06/17 02/06/17 02/07/17 15:00 23:00 07:00 Intake Total 350 ml 880 ml Output Total 600 ml 1090 ml 1390 ml Balance -600 ml -740 ml -510 ml Exam Resp- clear CVS- NSR Abd- soft NT wound clean Ext- NT no edema Results Result Diagram: 02/07/17 0429 02/07/17 0500 Results 24 hrs Laboratory Tests Test 02/07/17 04:29 02/07/17 05:00 White Blood Count 5.7 Red Blood Count 3.24 L Hemoglobin 9.6 L Hematocrit 29.3 L Mean Corpuscular Volume 90.4 Mean Corpuscular Hemoglobin 29.6 Mean Corpuscular Hemoglobin Concent 32.8 Red Cell Distribution Width 14.8 H Platelet Count 242 Mean Platelet Volume 9.6 Neutrophils % 64.5 Lymphocytes % 17.2 Monocytes % 13.0 H Eosinophils % 4.4 Basophils % 0.5 Nucleated Red Blood Cells % 0.0 Neutrophils # 3.7 Lymphocytes # 1.0 Monocytes # 0.7 Eosinophils # 0.3 Basophils # 0.0 Nucleated Red Blood Cells # 0.0 Sodium Level 137 Potassium Level 4.0 Chloride Level 101 Carbon Dioxide Level 26 Anion Gap 14 Blood Urea Nitrogen 10 Creatinine 0.75 Glucose Level 70 Calcium Level 8.8 Medications Medications Current Medications Hydromorphone HCl (Dilaudid) 0.5 mg Q2H PRN IV PAIN LEVEL 6-10 Last administered on 02/07/17t 13:17; Admin Dose 0.5 MG; Start 02/02/17 at 21:30 Ondansetron HCl (Zofran Inj) 4 mg Q6H PRN IV NAUSEA AND/OR VOMITING Last administered on 02/07/17 05:10; Admin Dose 4 MG; Start 02/02/17 at 21:30 Famotidine 20 mg 20 mg Q12 IV Last administered on 02/07/17 10:24; Admin Dose 20 MG; Start 02/03/17 at 09:00 Potassium Chloride/Lactated Ringer's (KCl/Lr) 1,010 ml @ 80 mls/hr [id number] IV Last administered on 02/07/17 13:18; Admin Dose 80 MLS/HR; Start 02/02/17 at 21 :11 CALE MITCHELL MD February 07, 2017 15:00
--- NOTE | 2017-02-07 16:19 | PN ---
Date/Time of Note Date/Time of Note DATE: 02/07/17 TIME: 16:19 Assessment/Plan VTE Prophylaxis VTE Prophylaxis Intervention: other Lines/Catheters IV Catheter Type (from Nrs): Peripheral IV Urinary Cath still in place: Yes Assessment/Plan Assessment/Plan - Locally advanced ovarian cancer with pelvic mass, status post surgery. siting up in chair- tolerated - IV fluids. - per sx - NGT to suction- 200 cc greenish - Continue Zofran p.r.n. for nausea - Dilaudid p.r.n. for pain. - Pepcid for peptic ulcer disease prophylaxis. - Continue Cool catheter. Further recommendations based on clinical course. Plan of care discussed with Dr. Valentin. Subjective 24 Hr Interval Summary Respiratory: no complaints Cardiovascular: no complaints Gastrointestinal: no complaints Exam/Review of Systems Vital Signs Vitals Vital Signs Date Time Temp Pulse Resp B/P Pulse Ox O2 Delivery O2 Flow Rate FiO2 02/07/17 07:49 98.0 74 19 131/76 98 02/06/17 20:34 Nasal Cannula 2.0 Intake and Output 02/06/17 02/06/17 02/07/17 15:00 23:00 07:00 Intake Total 350 ml 880 ml Output Total 600 ml 1090 ml 1390 ml Balance -600 ml -740 ml -510 ml Exam Constitutional: alert Respiratory: clear to auscultation Cardiovascular: nl pulses Gastrointestinal: non-tender, other, soft Musculoskeletal: nl extremities to inspection Results Result Diagram: 02/07/17 0429 02/07/17 0500 Results 24 hrs Laboratory Tests Test 02/07/17 04:29 02/07/17 05:00 White Blood Count 5.7 Red Blood Count 3.24 L Hemoglobin 9.6 L Hematocrit 29.3 L Mean Corpuscular Volume 90.4 Mean Corpuscular Hemoglobin 29.6 Mean Corpuscular Hemoglobin Concent 32.8 Red Cell Distribution Width 14.8 H Platelet Count 242 Mean Platelet Volume 9.6 Neutrophils % 64.5 Lymphocytes % 17.2 Monocytes % 13.0 H Eosinophils % 4.4 Basophils % 0.5 Nucleated Red Blood Cells % 0.0 Neutrophils # 3.7 Lymphocytes # 1.0 Monocytes # 0.7 Eosinophils # 0.3 Basophils # 0.0 Nucleated Red Blood Cells # 0.0 Sodium Level 137 Potassium Level 4.0 Chloride Level 101 Carbon Dioxide Level 26 Anion Gap 14 Blood Urea Nitrogen 10 Creatinine 0.75 Glucose Level 70 Calcium Level 8.8 Medications Medications Current Medications Hydromorphone HCl (Dilaudid) 0.5 mg Q2H PRN IV PAIN LEVEL 6-10 Last administered on 02/07/17 13:17; Admin Dose 0.5 MG; Start 02/02/17 at 21:30 Ondansetron HCl (Zofran Inj) 4 mg Q6H PRN IV NAUSEA AND/OR VOMITING Last administered on 02/07/17 05:10; Admin Dose 4 MG; Start 02/02/17 at 21:30 Famotidine 20 mg 20 mg Q12 IV Last administered on 02/07/17 10:24; Admin Dose 20 MG; Start 02/03/17 at 09:00 Potassium Chloride/Lactated Ringer's (KCl/Lr) 1,010 ml @ 80 mls/hr [id number] IV Last administered on 02/07/17 13:18; Admin Dose 80 MLS/HR; Start 02/02/17 at 21 :11 KEV SANCHEZ February 07, 2017 16:19
[2017-02-07 19:00] VITALS: BP 128/65; RESP 18
[2017-02-08] MEDS: POTASSIUM CHLORIDE 20 MEQ in LACTATED RINGER'S 1,000 ML IV SCH ×2 (03:38→16:22)
[2017-02-08 05:45] LABS: ADD SCAN DIFF NO
[2017-02-08 06:04] LABS: BASOPHILS % 0.5 % (0.0-2.0); EOSINOPHILS # 0.3 10^3/ul (0.0-0.5); EOSINOPHILS % 5.3 % (0.0-7.0); HEMOGLOBIN 9.6 g/dl (12.0-16.0); LYMPHOCYTES # 1.1 10^3/ul (0.8-2.9); LYMPHOCYTES % 18.4 % (15.0-51.0); MEAN CORPUSCULAR VOLUME 90.6 fl (82.0-101.0); MEAN PLATELET VOLUME 9.5 fl (7.4-10.4); MONOCYTE # 0.7 10^3/ul (0.3-0.9); NEUTROPHIL # 3.8 10^3/ul (1.6-7.5); NEUTROPHILS % 63.5 % (39.0-77.0); PLATELET COUNT 264 10^3/UL (140-415); RED BLOOD COUNT 3.31 10^6/ul (4.20-5.40); RED CELL DISTRIBUTION WIDTH 14.7 % (11.5-14.5)
[2017-02-08] MEDS: HYDROmorphONE 1 MG/ML SYG IV PRN ×3 (06:39→22:37)
[2017-02-08 06:55] LABS: ALBUMIN 2.8 g/dl (3.3-4.9); POTASSIUM 3.9 mmol/L (3.5-5.1)
[2017-02-08 06:57] LABS: BILIRUBIN,INDIRECT 0.2 mg/dl (0-1.1); BILIRUBIN,TOTAL 0.2 mg/dl (0.2-1.3); CREATININE 0.75 mg/dl (0.44-1.00)
[2017-02-08 06:58] LABS: ALBUMIN/GLOBULIN RATIO 0.84; CALCIUM 8.8 mg/dl (8.4-10.2); TOTAL PROTEIN 6.1 g/dl (6.1-8.1)
[2017-02-08 07:53] VITALS: BP 135/68; RESP 19
[2017-02-08] MEDS: FAMOTIDINE 20 MG INJ IV SCH ×2 (09:49→20:43)
[2017-02-08] MEDS: ONDANSETRON 4 MG INJ IV PRN (13:11)
--- NOTE | 2017-02-08 18:39 | PN ---
Date/Time of Note Date/Time of Note DATE: 02/08/17 TIME: 18:36 Assessment/Plan VTE Prophylaxis VTE Prophylaxis Intervention: SCD's Lines/Catheters IV Catheter Type (from Nrs): Peripheral IV Urinary Cath still in place: Yes Reason Cath still needed: urinary retention Assessment/Plan Chief Complaint/Hosp Course Patient was hypoactive bowel sound, positive flatus, patient to get nauseous when started on liquids. Patient is able to ambulate in the hallway. Encourage incentive spirometer and getting out of bed. ASSESSMENT AND PLAN: - Locally advanced ovarian cancer with pelvic mass, status post surgery. Continue IV fluids. Continue Zofran p.r.n. for nausea and Dilaudid p.r.n. for pain. Continue antibiotics, Pepcid for peptic ulcer disease prophylaxis. Continue to follow up surgical recommendations. Monitor electrolytes. Continue Cool catheter. Advance diet per surgery. Further recommendations based on clinical course. Plan of care discussed with Dr. Valentin. Problems: Subjective 24 Hr Interval Summary Free Text/Dictation Patient reported nausea after started on clear liquid diet, hypoactive bowel sounds. Exam/Review of Systems Vital Signs Vitals Vital Signs Date Time Temp Pulse Resp B/P Pulse Ox O2 Delivery O2 Flow Rate FiO2 02/08/17 07:53 98.0 68 19 135/68 99 02/06/17 20:34 Nasal Cannula 2.0 Intake and Output 02/07/17 02/07/17 02/08/17 15:00 23:00 07:00 Intake Total 750 ml 800 ml Output Total 1480 ml 835 ml Balance -730 ml -35 ml Exam Constitutional: alert Head: atraumatic, normocephalic Eyes: nl conjunctiva ENMT: nl external ears & nose Neck: non-tender, supple Respiratory: clear to auscultation Cardiovascular: nl pulses, regular rate and rhythm Gastrointestinal: other (Status post surgery), soft Musculoskeletal: nl extremities to inspection Extremities: normal pulses Neurological: BEAN PICKER II-XII intact Results Result Diagram: 02/08/17 0454 02/08/17 0454 Results 24 hrs Laboratory Tests Test 02/08/17 04:54 White Blood Count 6.0 Red Blood Count 3.31 L Hemoglobin 9.6 L Hematocrit 30.0 L Mean Corpuscular Volume 90.6 Mean Corpuscular Hemoglobin 29.0 Mean Corpuscular Hemoglobin Concent 32.0 Red Cell Distribution Width 14.7 H Platelet Count 264 Mean Platelet Volume 9.5 Neutrophils % 63.5 Lymphocytes % 18.4 Monocytes % 12.0 H Eosinophils % 5.3 Basophils % 0.5 Nucleated Red Blood Cells % 0.0 Neutrophils # 3.8 Lymphocytes # 1.1 Monocytes # 0.7 Eosinophils # 0.3 Basophils # 0.0 Nucleated Red Blood Cells # 0.0 Sodium Level 138 Potassium Level 3.9 Chloride Level 100 Carbon Dioxide Level 26 Anion Gap 16 Blood Urea Nitrogen 11 Creatinine 0.75 Glucose Level 74 Calcium Level 8.8 Total Bilirubin 0.2 Direct Bilirubin 0.00 Indirect Bilirubin 0.2 Aspartate Amino Transf (AST/SGOT) 23 Alanine Aminotransferase (ALT/SGPT) 29 Alkaline Phosphatase 73 Total Protein 6.1 Albumin 2.8 L Globulin 3.30 H Albumin/Globulin Ratio 0.84 Medications Medications Current Medications Hydromorphone HCl (Dilaudid) 0.5 mg Q2H PRN IV PAIN LEVEL 6-10 Last administered on 02/08/17 13:11; Admin Dose 0.5 MG; Start 02/02/17 at 21:30 Ondansetron HCl (Zofran Inj) 4 mg Q6H PRN IV NAUSEA AND/OR VOMITING Last administered on 02/08/17 13:11; Admin Dose 4 MG; Start 02/02/17 at 21:30 Famotidine 20 mg 20 mg Q12 IV Last administered on 02/08/17 09:49; Admin Dose 20 MG; Start 02/03/17 at 09:00 Potassium Chloride/Lactated Ringer's (KCl/Lr) 1,010 ml @ 80 mls/hr [id number] IV Last administered on 02/08/17 16:22; Admin Dose 80 MLS/HR; Start 02/02/17 at 21 :11 JAMILA SAUER February 08, 2017 18:39
[2017-02-08 20:47] VITALS: BP 135/68; RESP 16
[2017-02-09 04:50] LABS: ADD SCAN DIFF NO
[2017-02-09 04:56] LABS: BASOPHILS % 0.7 % (0.0-2.0); EOSINOPHILS # 0.3 10^3/ul (0.0-0.5); EOSINOPHILS % 5.4 % (0.0-7.0); HEMATOCRIT 28.4 % (37.0-47.0); HEMOGLOBIN 9.3 g/dl (12.0-16.0); LYMPHOCYTES # 1.1 10^3/ul (0.8-2.9); LYMPHOCYTES % 20.2 % (15.0-51.0); MEAN CORPUSCULAR HEMOGLOBIN 29.4 pg (29.0-33.0); MEAN CORPUSCULAR HGB CONC 32.7 g/dl (32.0-37.0); MEAN CORPUSCULAR VOLUME 89.9 fl (82.0-101.0); MEAN PLATELET VOLUME 9.2 fl (7.4-10.4); MONOCYTE # 0.8 10^3/ul (0.3-0.9); MONOCYTES % 14.4 % (0.0-11.0); NEUTROPHIL # 3.3 10^3/ul (1.6-7.5); NEUTROPHILS % 58.9 % (39.0-77.0); PLATELET COUNT 261 10^3/UL (140-415); RED BLOOD COUNT 3.16 10^6/ul (4.20-5.40); RED CELL DISTRIBUTION WIDTH 14.6 % (11.5-14.5); WHITE BLOOD COUNT 5.6 10^3/ul (4.8-10.8)
[2017-02-09 05:53] LABS: CALCIUM 8.8 mg/dl (8.4-10.2); CREATININE 0.73 mg/dl (0.44-1.00); POTASSIUM 4.1 mmol/L (3.5-5.1)
[2017-02-09] MEDS: POTASSIUM CHLORIDE 20 MEQ in LACTATED RINGER'S 1,000 ML IV SCH ×2 (05:53→20:52)
[2017-02-09 08:29] VITALS: BP 130/63; RESP 16
[2017-02-09] MEDS: FAMOTIDINE 20 MG INJ IV SCH ×2 (08:37→20:52)
[2017-02-09] MEDS: ONDANSETRON 4 MG INJ IV PRN (14:21)
[2017-02-09] MEDS: HYDROmorphONE 1 MG/ML SYG IV PRN ×2 (14:21→23:06)
--- NOTE | 2017-02-09 15:51 | PN ---
Date/Time of Note Date/Time of Note DATE: 02/09/17 TIME: 15:49 Assessment/Plan VTE Prophylaxis VTE Prophylaxis Intervention: SCD's Lines/Catheters IV Catheter Type (from Nrs): Peripheral IV Urinary Cath still in place: Yes Reason Cath still needed: urinary retention Assessment/Plan Chief Complaint/Hosp Course Tolerates liquid diet well, occasional nausea, denies vomiting, patient is able to ambulate in the hallway. ASSESSMENT AND PLAN: - Locally advanced ovarian cancer with pelvic mass, status post surgery. Continue IV fluids. Continue Zofran p.r.n. for nausea and Dilaudid p.r.n. for pain. Patient's condition and plan of care discussed with patient and patient has been at the bedside, all questions answered. Pepcid for peptic ulcer disease prophylaxis. Continue to follow up surgical recommendations. Monitor electrolytes. Continue Cool catheter. Advance diet per surgery. Further recommendations based on clinical course. Plan of care discussed with Dr. Vaelntin. Problems: Exam/Review of Systems Vital Signs Vitals Vital Signs Date Time Temp Pulse Resp B/P Pulse Ox O2 Delivery O2 Flow Rate FiO2 02/09/17 08:29 98.4 70 16 130/63 93 02/06/17 20:34 Nasal Cannula 2.0 Intake and Output 02/08/17 02/08/17 02/09/17 15:00 23:00 07:00 Intake Total 300 ml 1560 ml Output Total 1000 ml 1075 ml Balance -700 ml 485 ml Exam Constitutional: alert Head: atraumatic, normocephalic Eyes: nl conjunctiva ENMT: nl external ears & nose Neck: non-tender, supple Respiratory: clear to auscultation Cardiovascular: nl pulses, regular rate and rhythm Gastrointestinal: other (Status post surgery), soft Musculoskeletal: nl extremities to inspection Extremities: normal pulses Neurological: CHANNEL LAYER II-XII intact Results Result Diagram: 02/09/17 0415 02/09/175 Results 24 hrs Laboratory Tests Test 02/09/17 04:15 White Blood Count 5.6 Red Blood Count 3.16 L Hemoglobin 9.3 L Hematocrit 28.4 L Mean Corpuscular Volume 89.9 Mean Corpuscular Hemoglobin 29.4 Mean Corpuscular Hemoglobin Concent 32.7 Red Cell Distribution Width 14.6 H Platelet Count 261 Mean Platelet Volume 9.2 Neutrophils % 58.9 Lymphocytes % 20.2 Monocytes % 14.4 H Eosinophils % 5.4 Basophils % 0.7 Nucleated Red Blood Cells % 0.0 Neutrophils # 3.3 Lymphocytes # 1.1 Monocytes # 0.8 Eosinophils # 0.3 Basophils # 0.0 Nucleated Red Blood Cells # 0.0 Sodium Level 135 Potassium Level 4.1 Chloride Level 101 Carbon Dioxide Level 28 Anion Gap 10 # Blood Urea Nitrogen 9 Creatinine 0.73 Glucose Level 90 Calcium Level 8.8 Medications Medications Current Medications Hydromorphone HCl (Dilaudid) 0.5 mg Q2H PRN IV PAIN LEVEL 6-10 Last administered on 02/09/17 14:21; Admin Dose 0.5 MG; Start 02/02/17 at 21:30 Ondansetron HCl (Zofran Inj) 4 mg Q6H PRN IV NAUSEA AND/OR VOMITING Last administered on 02/09/17 14:21; Admin Dose 4 MG; Start 02/02/17 at 21:30 Famotidine 20 mg 20 mg Q12 IV Last administered on 02/09/17 08:37; Admin Dose 20 MG; Start 02/03/17 at 09:00 Potassium Chloride/Lactated Ringer's (KCl/Lr) 1,010 ml @ 80 mls/hr [id number] IV Last administered on 02/09/17 05:53; Admin Dose 80 MLS/HR; Start 02/02/17 at 21 :11 JAMILA SAUER February 09, 2017 15:51
--- NOTE | 2017-02-09 16:01 | PN ---
Date/Time of Note Date/Time of Note DATE: 02/09/17 TIME: 15:56 Assessment/Plan VTE Prophylaxis VTE Prophylaxis Intervention: SCD's Lines/Catheters IV Catheter Type (from Nrsg): Peripheral IV Urinary Cath still in place: Yes Reason Cath still needed: urinary retention Assessment/Plan Chief Complaint/Hosp Course Ovarian cancer/MMMT IIc Problems: Assessment/Plan A- clinically better P- Will further adv diet, bladder train and probably d/c Cool in 1-2 d Subjective 24 Hr Interval Summary Free Text/Dictation Feels better. + Flatus and small BM. OOB sl more Exam/Review of Systems Vital Signs Vitals Vital Signs Date Time Temp Pulse Resp B/P Pulse Ox O2 Delivery O2 Flow Rate FiO2 02/09/17 08:29 98.4 70 16 130/63 93 02/06/17 20:34 Nasal Cannula 2.0 Intake and Output 02/08/17 02/08/17 02/09/17 15:00 23:00 07:00 Intake Total 300 ml 1560 ml Output Total 1000 ml 1075 ml Balance -700 ml 485 ml Exam Resp- clear CVS- NSR Abd- soft NT Ext- NT mild edema Results Result Diagram: 02/09/17 0415 02/09/17 0415 Results 24 hrs Laboratory Tests Test 02/09/17 04:15 White Blood Count 5.6 Red Blood Count 3.16 L Hemoglobin 9.3 L Hematocrit 28.4 L Mean Corpuscular Volume 89.9 Mean Corpuscular Hemoglobin 29.4 Mean Corpuscular Hemoglobin Concent 32.7 Red Cell Distribution Width 14.6 H Platelet Count 261 Mean Platelet Volume 9.2 Neutrophils % 58.9 Lymphocytes % 20.2 Monocytes % 14.4 H Eosinophils % 5.4 Basophils % 0.7 Nucleated Red Blood Cells % 0.0 Neutrophils # 3.3 Lymphocytes # 1.1 Monocytes # 0.8 Eosinophils # 0.3 Basophils # 0.0 Nucleated Red Blood Cells # 0.0 Sodium Level 135 Potassium Level 4.1 Chloride Level 101 Carbon Dioxide Level 28 Anion Gap 10 # Blood Urea Nitrogen 9 Creatinine 0.73 Glucose Level 90 Calcium Level 8.8 Medications Medications Current Medications Hydromorphone HCl (Dilaudid) 0.5 mg Q2H PRN IV PAIN LEVEL 6-10 Last administered on 02/09/17t 14:21; Admin Dose 0.5 MG; Start 02/02/17 at 21:30 Ondansetron HCl (Zofran Inj) 4 mg Q6H PRN IV NAUSEA AND/OR VOMITING Last administered on 02/09/17 14:21; Admin Dose 4 MG; Start 02/02/17 at 21:30 Famotidine 20 mg 20 mg Q12 IV Last administered on 02/09/17 08:37; Admin Dose 20 MG; Start 02/03/17 at 09:00 Potassium Chloride/Lactated Ringer's (KCl/Lr) 1,010 ml @ 80 mls/hr [id number] IV Last administered on 02/09/17 05:53; Admin Dose 80 MLS/HR; Start 02/02/17 at 21 :11 CALE MITCHELL MD February 09, 2017 16:01
[2017-02-09 19:57] VITALS: BP 140/76; PULSE 92; RESP 18
[2017-02-09 20:54] VITALS: BP 133/74; RESP 19
[2017-02-10 05:07] LABS: ADD SCAN DIFF NO
[2017-02-10 05:11] LABS: BASOPHILS % 0.6 % (0.0-2.0); EOSINOPHILS # 0.2 10^3/ul (0.0-0.5); EOSINOPHILS % 4.4 % (0.0-7.0); HEMATOCRIT 29.5 % (37.0-47.0); HEMOGLOBIN 9.5 g/dl (12.0-16.0); LYMPHOCYTES # 1.2 10^3/ul (0.8-2.9); LYMPHOCYTES % 22.2 % (15.0-51.0); MEAN CORPUSCULAR HEMOGLOBIN 29.3 pg (29.0-33.0); MEAN CORPUSCULAR HGB CONC 32.2 g/dl (32.0-37.0); MEAN PLATELET VOLUME 9.4 fl (7.4-10.4); MONOCYTE # 0.7 10^3/ul (0.3-0.9); MONOCYTES % 13.7 % (0.0-11.0); NEUTROPHIL # 3.2 10^3/ul (1.6-7.5); NEUTROPHILS % 58.7 % (39.0-77.0); PLATELET COUNT 280 10^3/UL (140-415); RED BLOOD COUNT 3.24 10^6/ul (4.20-5.40); WHITE BLOOD COUNT 5.4 10^3/ul (4.8-10.8)
[2017-02-10 05:47] LABS: CALCIUM 8.8 mg/dl (8.4-10.2); CREATININE 0.84 mg/dl (0.44-1.00); POTASSIUM 4.1 mmol/L (3.5-5.1)
[2017-02-10 07:00] VITALS: BP 112/67; RESP 16
[2017-02-10] MEDS: FAMOTIDINE 20 MG INJ IV SCH ×2 (09:15→21:02)
[2017-02-10] MEDS: POTASSIUM CHLORIDE 20 MEQ in LACTATED RINGER'S 1,000 ML IV SCH (11:05)
--- NOTE | 2017-02-10 16:35 | PN ---
Date/Time of Note Date/Time of Note DATE: 02/10/17 TIME: 16:29 Assessment/Plan VTE Prophylaxis VTE Prophylaxis Intervention: SCD's Lines/Catheters IV Catheter Type (from Nrsg): Peripheral IV Urinary Cath still in place: Yes (NEW INSERTION.) Reason Cath still needed: urinary retention Assessment/Plan Chief Complaint/Hosp Course Patient tolerates full liquid diet, continue Cool with bladder training per surgical recommendations. Pain is well controlled, patient is encouraged to ambulate. ASSESSMENT AND PLAN: - Locally advanced ovarian cancer with pelvic mass, status post surgery. Continue IV fluids. Continue Zofran p.r.n. for nausea and Dilaudid p.r.n. for pain. Further recommendations based on clinical course. Plan of care discussed with Dr. Valentin. Problems: Exam/Review of Systems Vital Signs Vitals Vital Signs Date Time Temp Pulse Resp B/P Pulse Ox O2 Delivery O2 Flow Rate FiO2 02/10/17 07:00 97.7 60 16 112/67 99 02/09/17 19:57 Room Air 02/06/17 20:34 2.0 Intake and Output 02/09/17 02/09/17 02/10/17 15:00 23:00 07:00 Intake Total 1840 ml 1310 ml Output Total 2520 ml 1405 ml Balance -680 ml -95 ml Exam Constitutional: alert Head: atraumatic, normocephalic Eyes: nl conjunctiva ENMT: nl external ears & nose Neck: non-tender, supple Respiratory: clear to auscultation Cardiovascular: nl pulses, regular rate and rhythm Gastrointestinal: other (Status post surgery), soft Musculoskeletal: nl extremities to inspection Extremities: normal pulses Neurological: MEDICAL DATA ENTRY CLERK II-XII intact Results Result Diagram: 02/10/17 0430 02/10/17 043 Results 24 hrs Laboratory Tests Test 02/10/17 04:30 White Blood Count 5.4 Red Blood Count 3.24 L Hemoglobin 9.5 L Hematocrit 29.5 L Mean Corpuscular Volume 91.0 Mean Corpuscular Hemoglobin 29.3 Mean Corpuscular Hemoglobin Concent 32.2 Red Cell Distribution Width 15.0 H Platelet Count 280 Mean Platelet Volume 9.4 Neutrophils % 58.7 Lymphocytes % 22.2 Monocytes % 13.7 H Eosinophils % 4.4 Basophils % 0.6 Nucleated Red Blood Cells % 0.0 Neutrophils # 3.2 Lymphocytes # 1.2 Monocytes # 0.7 Eosinophils # 0.2 Basophils # 0.0 Nucleated Red Blood Cells # 0.0 Sodium Level 138 Potassium Level 4.1 Chloride Level 106 Carbon Dioxide Level 30 Anion Gap 6 L Blood Urea Nitrogen 7 Creatinine 0.84 Glucose Level 102 Calcium Level 8.8 Medications Medications Current Medications Hydromorphone HCl (Dilaudid) 0.5 mg Q2H PRN IV PAIN LEVEL 6-10 Last administered on 02/09/17 23:06; Admin Dose 0.5 MG; Start 02/02/17 at 21:30 Ondansetron HCl (Zofran Inj) 4 mg Q6H PRN IV NAUSEA AND/OR VOMITING Last administered on 02/09/17 14:21; Admin Dose 4 MG; Start 02/02/17 at 21:30 Famotidine 20 mg 20 mg Q12 IV Last administered on 02/10/17 09:15; Admin Dose 20 MG; Start 02/03/17 at 09:00 Potassium Chloride/Lactated Ringer's (KCl/Lr) 1,010 ml @ 60 mls/hr [id number] IV Last administered on 02/10/17 11:05; Admin Dose 80 MLS/HR; Start 02/02/17 at 21 :11 JAMILA SAUER February 10, 2017 16:35
--- NOTE | 2017-02-10 18:09 | PN ---
Date/Time of Note Date/Time of Note DATE: 02/10/17 TIME: 18:05 Assessment/Plan VTE Prophylaxis VTE Prophylaxis Intervention: SCD's Lines/Catheters IV Catheter Type (from Nrs): Peripheral IV Urinary Cath still in place: Yes (NEW INSERTION.) Reason Cath still needed: urinary retention, other (indicate) Assessment/Plan Chief Complaint/Hosp Course Ovarian cancer/MMMT IIc Problems: Assessment/Plan A- doing well P- further taper narcotics and adv diet a.m. will probably d/c Cool a.m. Note: my office researched and NO medical oncologist at [facility] is on her plan ( she [place]). Therefore I will treat with first cycle of chemo before discharge and refer to oncologist at [facility]. Subjective 24 Hr Interval Summary Free Text/Dictation Feels better, + flatus and OOB more. Mary Ann full liq but not eating much Exam/Review of Systems Vital Signs Vitals Vital Signs Date Time Temp Pulse Resp B/P Pulse Ox O2 Delivery O2 Flow Rate FiO2 02/10/17 07:00 97.7 60 16 112/67 99 02/09/17 19:57 Room Air 02/06/17 20:34 2.0 Intake and Output 02/09/17 02/09/17 02/10/17 15:00 23:00 07:00 Intake Total 1840 ml 1310 ml Output Total 2520 ml 1405 ml Balance -680 ml -95 ml Exam Resp- clear CVS- NSR Abd- NT- Ext NT no edema Results Result Diagram: 02/10/17 0430 02/10/17 0430 Results 24 hrs Laboratory Tests Test 02/10/17 04:30 White Blood Count 5.4 Red Blood Count 3.24 L Hemoglobin 9.5 L Hematocrit 29.5 L Mean Corpuscular Volume 91.0 Mean Corpuscular Hemoglobin 29.3 Mean Corpuscular Hemoglobin Concent 32.2 Red Cell Distribution Width 15.0 H Platelet Count 280 Mean Platelet Volume 9.4 Neutrophils % 58.7 Lymphocytes % 22.2 Monocytes % 13.7 H Eosinophils % 4.4 Basophils % 0.6 Nucleated Red Blood Cells % 0.0 Neutrophils # 3.2 Lymphocytes # 1.2 Monocytes # 0.7 Eosinophils # 0.2 Basophils # 0.0 Nucleated Red Blood Cells # 0.0 Sodium Level 138 Potassium Level 4.1 Chloride Level 106 Carbon Dioxide Level 30 Anion Gap 6 L Blood Urea Nitrogen 7 Creatinine 0.84 Glucose Level 102 Calcium Level 8.8 Medications Medications Current Medications Hydromorphone HCl (Dilaudid) 0.5 mg Q2H PRN IV PAIN LEVEL 6-10 Last administered on 02/09/17 23:06; Admin Dose 0.5 MG; Start 02/02/17 at 21:30 Ondansetron HCl (Zofran Inj) 4 mg Q6H PRN IV NAUSEA AND/OR VOMITING Last administered on 02/09/17 14:21; Admin Dose 4 MG; Start 02/02/17 at 21:30 Famotidine 20 mg 20 mg Q12 IV Last administered on 02/10/17 09:15; Admin Dose 20 MG; Start 02/03/17 at 09:00 Potassium Chloride/Lactated Ringer's (KCl/Lr) 1,010 ml @ 40 mls/hr Q24H IV Last administered on 02/10/17 11:05; Admin Dose 80 MLS/HR; Start 02/02/17 at 21 :11 CALE MITCHELL MD February 10, 2017 18:09
[2017-02-10 19:00] VITALS: BP 133/77; RESP 19
[2017-02-10] MEDS: HYDROmorphONE 1 MG/ML SYG IV PRN (23:01)
[2017-02-11] MEDS: POTASSIUM CHLORIDE 20 MEQ in LACTATED RINGER'S 1,000 ML IV SCH ×2 (04:05→20:23)
[2017-02-11 08:02] VITALS: BP 126/69; RESP 18
[2017-02-11] MEDS: FAMOTIDINE 20 MG INJ IV SCH ×2 (09:32→20:35)
[2017-02-11] MEDS: HYDROmorphONE 1 MG/ML SYG IV PRN ×2 (13:23→23:20)
--- NOTE | 2017-02-11 16:29 | PN ---
Date/Time of Note Date/Time of Note DATE: 02/11/17 TIME: 16:28 Assessment/Plan VTE Prophylaxis VTE Prophylaxis Intervention: other Lines/Catheters IV Catheter Type (from Nrs): Peripheral IV Urinary Cath still in place: Yes Assessment/Plan Assessment/Plan - Locally advanced ovarian cancer with pelvic mass, status post surgery. Continue IV fluids. Continue Zofran p.r.n. for nausea and Dilaudid p.r.n. for pain. Further recommendations based on clinical course. Plan of care discussed with Dr. Valentin. Exam/Review of Systems Vital Signs Vitals Vital Signs Date Time Temp Pulse Resp B/P Pulse Ox O2 Delivery O2 Flow Rate FiO2 02/11/17 08:02 98.2 69 18 126/69 96 02/09/17 19:57 Room Air Intake and Output 02/10/17 02/10/17 02/11/17 15:00 23:00 07:00 Intake Total 450 ml 1350 ml 500 ml Output Total 1145 ml 325 ml Balance 450 ml 205 ml 175 ml Exam Constitutional: alert, oriented, well developed Psych: no complaints Eyes: nl sclera Respiratory: clear to auscultation, normal air movement Cardiovascular: nl pulses, regular rate and rhythm Gastrointestinal: other, soft Musculoskeletal: nl extremities to inspection Extremities: normal pulses Neurological: nl mental status, nl speech Results Result Diagram: 02/10/1742902/10/17 043 Medications Medications Current Medications Hydromorphone HCl (Dilaudid) 0.5 mg Q2H PRN IV PAIN LEVEL 6-10 Last administered on 02/11/17 13:23; Admin Dose 0.5 MG; Start 02/02/17 at 21:30 Ondansetron HCl (Zofran Inj) 4 mg Q6H PRN IV NAUSEA AND/OR VOMITING Last administered on 02/09/17 14:21; Admin Dose 4 MG; Start 02/02/17 at 21:30 Famotidine 20 mg 20 mg Q12 IV Last administered on 02/11/17 09:32; Admin Dose 20 MG; Start 02/03/17 at 09:00 Potassium Chloride/Lactated Ringer's (KCl/Lr) 1,010 ml @ 40 mls/hr Q24H IV Last administered on 02/11/17 04:05; Admin Dose 40 MLS/HR; Start 02/02/17 at 21 :11 KEV SANCHEZ February 11, 2017 16:29
[2017-02-11 19:00] VITALS: BP 140/69; RESP 19
--- NOTE | 2017-02-11 19:24 | PN ---
Date/Time of Note Date/Time of Note DATE: 02/11/17 TIME: 19:18 Assessment/Plan VTE Prophylaxis VTE Prophylaxis Intervention: SCD's Lines/Catheters IV Catheter Type (from Nrsg): Peripheral IV Urinary Cath still in place: Yes Reason Cath still needed: urinary retention Assessment/Plan Chief Complaint/Hosp Course Ovarian cancer/MMMT IIc Problems: Assessment/Plan A- doing well other than urinary retention due to lateral necessary dissection P- adv diet and d/c stent tomorrow Anticipate chemo over or Wednesday if possible Subjective 24 Hr Interval Summary Free Text/Dictation + flatus but eats marginally. No N/V. Exam/Review of Systems Vital Signs Vitals Vital Signs Date Time Temp Pulse Resp B/P Pulse Ox O2 Delivery O2 Flow Rate FiO2 02/11/17 08:02 98.2 69 18 126/69 96 02/09/17 19:57 Room Air Intake and Output 02/10/17 02/10/17 02/11/17 15:00 23:00 07:00 Intake Total 450 ml 1350 ml 500 ml Output Total 1145 ml 325 ml Balance 450 ml 205 ml 175 ml Exam Resp- clear CVS- NSR Abd- soft NT Ext NT no edema Results Result Diagram: 02/10/17 0430 02/10/17 0430 Medications Medications Current Medications Hydromorphone HCl (Dilaudid) 0.5 mg Q2H PRN IV PAIN LEVEL 6-10 Last administered on 02/11/17 13:23; Admin Dose 0.5 MG; Start 02/02/17 at 21:30 Ondansetron HCl (Zofran Inj) 4 mg Q6H PRN IV NAUSEA AND/OR VOMITING Last administered on 02/09/17 14:21; Admin Dose 4 MG; Start 02/02/17 at 21:30 Famotidine 20 mg 20 mg Q12 IV Last administered on 02/11/17 09:32; Admin Dose 20 MG; Start 02/03/17 at 09:00 Potassium Chloride/Lactated Ringer's (KCl/Lr) 1,010 ml @ 40 mls/hr Q24H IV Last administered on 02/11/17 04:05; Admin Dose 40 MLS/HR; Start 02/02/17 at 21 :11 CALE MITCHELL MD February 11, 2017 19:24
[2017-02-12 05:30] LABS: ADD SCAN DIFF NO
[2017-02-12 05:37] LABS: BASOPHILS % 0.6 % (0.0-2.0); EOSINOPHILS # 0.2 10^3/ul (0.0-0.5); EOSINOPHILS % 3.3 % (0.0-7.0); HEMATOCRIT 29.7 % (37.0-47.0); HEMOGLOBIN 9.5 g/dl (12.0-16.0); LYMPHOCYTES # 1.5 10^3/ul (0.8-2.9); LYMPHOCYTES % 29.9 % (15.0-51.0); MEAN CORPUSCULAR HEMOGLOBIN 29.3 pg (29.0-33.0); MEAN CORPUSCULAR VOLUME 91.7 fl (82.0-101.0); MEAN PLATELET VOLUME 9.7 fl (7.4-10.4); MONOCYTE # 0.6 10^3/ul (0.3-0.9); MONOCYTES % 13.2 % (0.0-11.0); NEUTROPHIL # 2.6 10^3/ul (1.6-7.5); NEUTROPHILS % 52.6 % (39.0-77.0); PLATELET COUNT 316 10^3/UL (140-415); RED BLOOD COUNT 3.24 10^6/ul (4.20-5.40); RED CELL DISTRIBUTION WIDTH 15.3 % (11.5-14.5); WHITE BLOOD COUNT 4.9 10^3/ul (4.8-10.8)
[2017-02-12 05:59] LABS: POTASSIUM 3.9 mmol/L (3.5-5.1)
[2017-02-12 06:02] LABS: CALCIUM 8.7 mg/dl (8.4-10.2)
[2017-02-12 07:27] LABS: CREATININE 0.86 mg/dl (0.44-1.00)
[2017-02-12 07:45] VITALS: BP 118/61; RESP 20
[2017-02-12] MEDS: POTASSIUM CHLORIDE 20 MEQ in LACTATED RINGER'S 1,000 ML IV SCH (08:22)
[2017-02-12] MEDS: FAMOTIDINE 20 MG INJ IV SCH ×2 (08:22→20:36)
[2017-02-12] MEDS ORDERED: LIDOCAINE 1% (MPF) 5 ML VIAL SC ONE ×2 (12:00→12:30)
--- NOTE | 2017-02-12 12:29 | PN ---
Date/Time of Note Date/Time of Note DATE: 02/12/17 TIME: 12:26 Assessment/Plan VTE Prophylaxis VTE Prophylaxis Intervention: SCD's Lines/Catheters IV Catheter Type (from Nrsg): Peripheral IV Urinary Cath still in place: Yes Reason Cath still needed: urinary retention Assessment/Plan Chief Complaint/Hosp Course Patient tolerates mechanical soft diet well, pain is well controlled, will start PICC line for first cycle of chemotherapy. ASSESSMENT AND PLAN: - Locally advanced ovarian cancer with pelvic mass, status post surgery. Continue IV fluids. Continue Zofran p.r.n. for nausea and start [place] as needed for pain since patient's is tolerating p.o. well. Patient's condition and plan of care discussed at the bedside with patient patient and Dr. Fariba Alaniz. Plan for PICC line insertion and started chemotherapy, case management for authorization of second cycle of chemotherapy per patient insurance. Further recommendations based on clinical course. Plan of care discussed with Dr. Valentin. Problems: Exam/Review of Systems Vital Signs Vitals Vital Signs Date Time Temp Pulse Resp B/P Pulse Ox O2 Delivery O2 Flow Rate FiO2 02/12/17 07:45 98.1 68 20 118/61 95 02/09/17 19:57 Room Air Intake and Output 02/11/17 02/11/17 02/12/17 15:00 23:00 07:00 Intake Total 2020 ml 1270 ml Output Total 1140 ml 1240 ml Balance 880 ml 30 ml Exam Constitutional: alert Head: atraumatic, normocephalic Eyes: nl conjunctiva ENMT: nl external ears & nose Neck: non-tender, supple Respiratory: clear to auscultation Cardiovascular: nl pulses, regular rate and rhythm Gastrointestinal: other (Status post surgery), soft Musculoskeletal: nl extremities to inspection Extremities: normal pulses Neurological: FEED ADVISER II-XII intact Results Result Diagram: 02/12/179 02/12/17448 Results 24 hrs Laboratory Tests Test 02/12/17 04:49 White Blood Count 4.9 Red Blood Count 3.24 L Hemoglobin 9.5 L Hematocrit 29.7 L Mean Corpuscular Volume 91.7 Mean Corpuscular Hemoglobin 29.3 Mean Corpuscular Hemoglobin Concent 32.0 Red Cell Distribution Width 15.3 H Platelet Count 316 Mean Platelet Volume 9.7 Neutrophils % 52.6 Lymphocytes % 29.9 Monocytes % 13.2 H Eosinophils % 3.3 Basophils % 0.6 Nucleated Red Blood Cells % 0.0 Neutrophils # 2.6 Lymphocytes # 1.5 Monocytes # 0.6 Eosinophils # 0.2 Basophils # 0.0 Nucleated Red Blood Cells # 0.0 Sodium Level 142 Potassium Level 3.9 Chloride Level 105 Carbon Dioxide Level 28 Anion Gap 13 Blood Urea Nitrogen 7 Creatinine 0.86 Glucose Level 93 Calcium Level 8.7 Medications Medications Current Medications Hydromorphone HCl (Dilaudid) 0.5 mg Q2H PRN IV PAIN LEVEL 6-10 Last administered on 02/11/17 23:20; Admin Dose 0.5 MG; Start 02/02/17 at 21:30 Ondansetron HCl (Zofran Inj) 4 mg Q6H PRN IV NAUSEA AND/OR VOMITING Last administered on 02/09/17 14:21; Admin Dose 4 MG; Start 02/02/17 at 21:30 Famotidine 20 mg 20 mg Q12 IV Last administered on 02/12/17 08:22; Admin Dose 20 MG; Start 02/03/17 at 09:00 Potassium Chloride/Lactated Ringer's (KCl/Lr) 1,010 ml @ 40 mls/hr Q24H IV Last administered on 02/12/17 08:22; Admin Dose 40 MLS/HR; Start 02/02/17 at 21 :11 Lidocaine (Xylocaine 1% (Mpf)) 5 ml ONCE ONCE SC ; Start 02/12/17 at 12:30; Stop 02/12/17 at 12:31; Status JAMILA MCCRAY February 12, 2017 12:29
--- NOTE | 2017-02-12 14:44 | RADRPT ---
PROCEDURE: Ultrasound guidance for placement of needle in left upper extremity vein. CLINICAL INDICATION: Venous access. TECHNIQUE: Limited sonography of the left upper extremity was performed. Ultrasound images were recorded and s tored in the patient's medical record. COMPARISON: None. FINDINGS: The ultrasound images demonstrate a patent left upper extremity vein. The PICC line was inserted by the PICC line nurse. IMPRESSION: 1. Ultrasound guidance for a needle placement in a left upper extremity vein. 2. The left upper extremity vein is patent. RPTAT: QQ .Junior Saeed MD, MD Date Time Electronically viewed and signed by .Junior Saeed MD, MD on 02/12/2017 14:44 .R/
[2017-02-12] MEDS: HYDROmorphONE 1 MG/ML SYG IV PRN ×2 (16:05→23:53)
--- NOTE | 2017-02-12 17:07 | RADRPT ---
PROCEDURE: XR Chest. CLINICAL INDICATION: Assess PICC line catheter placement. TECHNIQUE: Single frontal view of the chest was obtained. COMPARISON: Chest x-ray 02/12/2017 02:17 p.m. FINDINGS: The soft tissues are normal. A PICC line catheter has been repositioned with its tip now in the mid right atrium. There are plate-like areas of atelectasis lateral to the ko. The heart is mildly enlarged. No pneumothorax is identified. There are degenerative changes in the lower thoracic spin e. There is a left-sided aorta pain IMPRESSION: 1. The PICC line catheter has been withdrawn slightly with its tip now in the mid right atrium. 2. Plate-like atelectasis lateral to the ko. RPTAT:AAJJ Physician Ag Date Time Electronically viewed and signed by Mahin Coyne Physician on 02/12/2017 17:07 IMELDA/
[2017-02-12 19:00] VITALS: BP 113/61; RESP 19
--- NOTE | 2017-02-12 20:00 | RADRPT ---
PROCEDURE: XR Chest. CLINICAL INDICATION: Check PICC line position. TECHNIQUE: Single frontal view. COMPARISON: No prior study is available for comparison. FINDINGS: There is a left arm PICC line with the tip in the mid right atrium. This should be pulled back 2 cm . There is mild linear atelectasis in the perihilar regions. The lungs are otherwise clear. The heart size is normal. There is no pleural effusion. There is no pneumothorax. IMPRESSION: 1. The left arm PICC line should be pulled back 2 cm. The PICC line nurse has been informed. 2. Mild linear atelectasis in the perihilar regions. 3. Otherwise unremarkable study. RPTAT: QQ .Junior Saeed MD, MD Date Time Electronically viewed and signed by .Junior Saeed MD, MD on 02/12/2017 20:00 .R/
--- NOTE | 2017-02-13 00:13 | PN ---
Date/Time of Note Date/Time of Note DATE: 02/13/17 TIME: 00:11 Assessment/Plan VTE Prophylaxis VTE Prophylaxis Intervention: SCD's Lines/Catheters IV Catheter Type (from Nrsg): PICC Line Central line still needed: Yes Urinary Cath still in place: Yes Reason Cath still needed: urinary retention Assessment/Plan Chief Complaint/Hosp Course Ovarian cancer/MMMT IIc Problems: Assessment/Plan A- dong well P- adv diet and probably chemo 2-3 d Subjective 24 Hr Interval Summary Free Text/Dictation Feels better and OOB more Exam/Review of Systems Vital Signs Vitals Vital Signs Date Time Temp Pulse Resp B/P Pulse Ox O2 Delivery O2 Flow Rate FiO2 02/12/17 19:00 98.4 72 19 113/61 96 02/09/17 19:57 Room Air Intake and Output 02/12/17 02/12/17 02/13/17 15:00 23:00 07:00 Intake Total 1600 ml Output Total 1220 ml Balance 380 ml Exam Resp- clear CVS- NSR Abd- soft Ext Nt baseline edema Results Result Diagram: 02/12/17 0449 02/12/17 0449 Results 24 hrs Laboratory Tests Test 02/12/17 04:49 White Blood Count 4.9 Red Blood Count 3.24 L Hemoglobin 9.5 L Hematocrit 29.7 L Mean Corpuscular Volume 91.7 Mean Corpuscular Hemoglobin 29.3 Mean Corpuscular Hemoglobin Concent 32.0 Red Cell Distribution Width 15.3 H Platelet Count 316 Mean Platelet Volume 9.7 Neutrophils % 52.6 Lymphocytes % 29.9 Monocytes % 13.2 H Eosinophils % 3.3 Basophils % 0.6 Nucleated Red Blood Cells % 0.0 Neutrophils # 2.6 Lymphocytes # 1.5 Monocytes # 0.6 Eosinophils # 0.2 Basophils # 0.0 Nucleated Red Blood Cells # 0.0 Sodium Level 142 Potassium Level 3.9 Chloride Level 105 Carbon Dioxide Level 28 Anion Gap 13 Blood Urea Nitrogen 7 Creatinine 0.86 Glucose Level 93 Calcium Level 8.7 Medications Medications Current Medications Hydromorphone HCl (Dilaudid) 0.5 mg Q2H PRN IV PAIN LEVEL 6-10 Last administered on 02/12/17t 23:53; Admin Dose 0.5 MG; Start 02/02/17 at 21:30 Ondansetron HCl (Zofran Inj) 4 mg Q6H PRN IV NAUSEA AND/OR VOMITING Last administered on 02/09/17 14:21; Admin Dose 4 MG; Start 02/02/17 at 21:30 Famotidine 20 mg 20 mg Q12 IV Last administered on 02/12/17 20:36; Admin Dose 20 MG; Start 02/03/17 at 09:00 Potassium Chloride/Lactated Ringer's (KCl/Lr) 1,010 ml @ 40 mls/hr Q24H IV Last administered on 02/12/17 08:22; Admin Dose 40 MLS/HR; Start 02/02/17 at 21 :11 IV Flush (NS 10 ml) 10 ml PRN PRN IV FLUSH LINE; Start 02/12/17 at 19:00 CALE MITCHELL MD February 13, 2017 00:13
[2017-02-13] MEDS: POTASSIUM CHLORIDE 20 MEQ in LACTATED RINGER'S 1,000 ML IV SCH ×2 (01:23→12:02)
[2017-02-13 05:24] LABS: ADD SCAN DIFF NO
[2017-02-13 05:31] LABS: BASOPHILS % 0.6 % (0.0-2.0); EOSINOPHILS # 0.2 10^3/ul (0.0-0.5); EOSINOPHILS % 3.5 % (0.0-7.0); HEMATOCRIT 28.9 % (37.0-47.0); HEMOGLOBIN 9.2 g/dl (12.0-16.0); LYMPHOCYTES # 1.3 10^3/ul (0.8-2.9); LYMPHOCYTES % 27.4 % (15.0-51.0); MEAN CORPUSCULAR HEMOGLOBIN 29.5 pg (29.0-33.0); MEAN CORPUSCULAR HGB CONC 31.8 g/dl (32.0-37.0); MEAN CORPUSCULAR VOLUME 92.6 fl (82.0-101.0); MEAN PLATELET VOLUME 9.8 fl (7.4-10.4); MONOCYTE # 0.6 10^3/ul (0.3-0.9); MONOCYTES % 13.1 % (0.0-11.0); NEUTROPHIL # 2.7 10^3/ul (1.6-7.5); NEUTROPHILS % 55.2 % (39.0-77.0); PLATELET COUNT 332 10^3/UL (140-415); RED BLOOD COUNT 3.12 10^6/ul (4.20-5.40); RED CELL DISTRIBUTION WIDTH 15.5 % (11.5-14.5); WHITE BLOOD COUNT 4.8 10^3/ul (4.8-10.8)
[2017-02-13 05:49] LABS: CREATININE 0.87 mg/dl (0.44-1.00); POTASSIUM 4.1 mmol/L (3.5-5.1)
[2017-02-13 07:00] VITALS: BP 141/76; RESP 18
[2017-02-13] MEDS: FAMOTIDINE 20 MG INJ IV SCH ×2 (08:30→20:34)
--- NOTE | 2017-02-13 12:40 | PN ---
Date/Time of Note Date/Time of Note DATE: 02/13/17 TIME: 12:40 Assessment/Plan VTE Prophylaxis VTE Prophylaxis Intervention: other Lines/Catheters IV Catheter Type (from Nrsg): PICC Line Central line still needed: Yes Urinary Cath still in place: Yes Reason Cath still needed: skin wounds contaminated by urine Assessment/Plan Chief Complaint/Hosp Course - Locally advanced ovarian cancer with pelvic mass, status post surgery. Continue IV fluids. Continue Zofran p.r.n. for nausea and start [place] as needed for pain since patient's is tolerating p.o. well. Patient's condition and plan of care discussed at the bedside with patient patient and Dr. Fariba Alaniz. Plan for PICC line insertion and started chemotherapy, case management for authorization of second cycle of chemotherapy per patient insurance. Problems: Subjective 24 Hr Interval Summary Free Text/Dictation Patient has intermittent pain Exam/Review of Systems Vital Signs Vitals Vital Signs Date Time Temp Pulse Resp B/P Pulse Ox O2 Delivery O2 Flow Rate FiO2 02/13/17 07:00 98.5 55 18 141/76 97 02/09/17 19:57 Room Air Intake and Output 02/12/17 02/12/17 02/13/17 15:00 23:00 07:00 Intake Total 1600 ml 1130 ml Output Total 1220 ml 920 ml Balance 380 ml 210 ml Exam Constitutional: well developed Head: atraumatic, normocephalic Neck: supple Respiratory: clear to auscultation Cardiovascular: regular rate and rhythm Gastrointestinal: non-tender, soft Extremities: normal pulses Results Result Diagram: 02/13/17 0446 02/13/17 0446 Results 24 hrs Laboratory Tests Test 02/13/17 04:46 White Blood Count 4.8 Red Blood Count 3.12 L Hemoglobin 9.2 L Hematocrit 28.9 L Mean Corpuscular Volume 92.6 Mean Corpuscular Hemoglobin 29.5 Mean Corpuscular Hemoglobin Concent 31.8 L Red Cell Distribution Width 15.5 H Platelet Count 332 Mean Platelet Volume 9.8 Neutrophils % 55.2 Lymphocytes % 27.4 Monocytes % 13.1 H Eosinophils % 3.5 Basophils % 0.6 Nucleated Red Blood Cells % 0.0 Neutrophils # 2.7 Lymphocytes # 1.3 Monocytes # 0.6 Eosinophils # 0.2 Basophils # 0.0 Nucleated Red Blood Cells # 0.0 Sodium Level 138 Potassium Level 4.1 Chloride Level 107 Carbon Dioxide Level 26 Anion Gap 9 Blood Urea Nitrogen 10 Creatinine 0.87 Glucose Level 89 Calcium Level 9.0 Medications Medications Current Medications Hydromorphone HCl (Dilaudid) 0.5 mg Q2H PRN IV PAIN LEVEL 6-10 Last administered on 02/12/17 23:53; Admin Dose 0.5 MG; Start 02/02/17 at 21:30 Ondansetron HCl (Zofran Inj) 4 mg Q6H PRN IV NAUSEA AND/OR VOMITING Last administered on 02/09/17 14:21; Admin Dose 4 MG; Start 02/02/17 at 21:30 Famotidine 20 mg 20 mg Q12 IV Last administered on 02/13/17 08:30; Admin Dose 20 MG; Start 02/03/17 at 09:00 Potassium Chloride/Lactated Ringer's (KCl/Lr) 1,010 ml @ 40 mls/hr Q24H IV Last administered on 02/13/17 12:02; Admin Dose 40 MLS/HR; Start 02/02/17 at 21 :11 IV Flush (NS 10 ml) 10 ml PRN PRN IV FLUSH LINE; Start 02/12/17 at 19:00 LAURA SONI February 13, 2017 12:40
--- NOTE | 2017-02-13 14:27 | PN ---
Date/Time of Note Date/Time of Note DATE: 02/13/17 TIME: 14:24 Assessment/Plan VTE Prophylaxis VTE Prophylaxis Intervention: SCD's Lines/Catheters IV Catheter Type (from Nrsg): PICC Line Central line still needed: Yes Urinary Cath still in place: Yes Reason Cath still needed: urinary retention Assessment/Plan Chief Complaint/Hosp Course Ovarian cancer/MMMT IIc Problems: Assessment/Plan A doing well P- chemo tomorrow if facility able Subjective 24 Hr Interval Summary Free Text/Dictation Mary Ann diet better and OOB more. Exam/Review of Systems Vital Signs Vitals Vital Signs Date Time Temp Pulse Resp B/P Pulse Ox O2 Delivery O2 Flow Rate FiO2 02/13/17 07:00 98.5 55 18 141/76 97 02/09/17 19:57 Room Air Intake and Output 02/12/17 02/12/17 02/13/17 15:00 23:00 07:00 Intake Total 1600 ml 1130 ml Output Total 1220 ml 920 ml Balance 380 ml 210 ml Exam Resp- clear CVS- NSR And- soft NT Ext NT no edema Results Result Diagram: 02/13/17 0446 02/13/17 0446 Results 24 hrs Laboratory Tests Test 02/13/17 04:46 White Blood Count 4.8 Red Blood Count 3.12 L Hemoglobin 9.2 L Hematocrit 28.9 L Mean Corpuscular Volume 92.6 Mean Corpuscular Hemoglobin 29.5 Mean Corpuscular Hemoglobin Concent 31.8 L Red Cell Distribution Width 15.5 H Platelet Count 332 Mean Platelet Volume 9.8 Neutrophils % 55.2 Lymphocytes % 27.4 Monocytes % 13.1 H Eosinophils % 3.5 Basophils % 0.6 Nucleated Red Blood Cells % 0.0 Neutrophils # 2.7 Lymphocytes # 1.3 Monocytes # 0.6 Eosinophils # 0.2 Basophils # 0.0 Nucleated Red Blood Cells # 0.0 Sodium Level 138 Potassium Level 4.1 Chloride Level 107 Carbon Dioxide Level 26 Anion Gap 9 Blood Urea Nitrogen 10 Creatinine 0.87 Glucose Level 89 Calcium Level 9.0 Medications Medications Current Medications Ondansetron HCl (Zofran Inj) 4 mg Q6H PRN IV NAUSEA AND/OR VOMITING Last administered on 02/09/17t 14:21; Admin Dose 4 MG; Start 02/02/17 at 21:30 Famotidine 20 mg 20 mg Q12 IV Last administered on 02/13/17 08:30; Admin Dose 20 MG; Start 02/03/17 at 09:00 Potassium Chloride/Lactated Ringer's (KCl/Lr) 1,010 ml @ 40 mls/hr Q24H IV Last administered on 02/13/17 12:02; Admin Dose 40 MLS/HR; Start 02/02/17 at 21 :11 IV Flush (NS 10 ml) 10 ml PRN PRN IV FLUSH LINE; Start 02/12/17 at 19:00 Tramadol HCl (Ultram) 50 mg Q6H PRN PO PAIN; Start 02/13/17 at 13:00 CALE MITCHELL MD February 13, 2017 14:27
[2017-02-13 14:33] VITALS: Ht 170.2 cm; Wt 81.1 kg
[2017-02-13 20:37] VITALS: BP 129/72; RESP 18
[2017-02-13] MEDS: traMADol 50 MG TAB PO PRN (22:38)
[2017-02-13] MEDS: DEXAMETHASONE 4 MG TAB PO SCH (23:09)
[2017-02-14] VITALS (13 sets, daily range): BP systolic 106–145; BP diastolic 45–79; PULSE 90–101; RESP 18–20
[2017-02-14] MEDS: POTASSIUM CHLORIDE 20 MEQ in LACTATED RINGER'S 1,000 ML IV SCH (01:23)
[2017-02-14 05:18] LABS: ADD SCAN DIFF NO
[2017-02-14 05:50] LABS: ABNORMAL IP MESSAGE 1; BASOPHILS % 0.4 % (0.0-2.0); HEMATOCRIT 32.1 % (37.0-47.0); HEMOGLOBIN 10.2 g/dl (12.0-16.0); LYMPHOCYTES # 0.5 10^3/ul (0.8-2.9); LYMPHOCYTES % 10.4 % (15.0-51.0); MEAN CORPUSCULAR HEMOGLOBIN 29.2 pg (29.0-33.0); MEAN CORPUSCULAR HGB CONC 31.8 g/dl (32.0-37.0); MEAN PLATELET VOLUME 10.3 fl (7.4-10.4); MONOCYTE # 0.1 10^3/ul (0.3-0.9); MONOCYTES % 1.7 % (0.0-11.0); NEUTROPHILS % 87.3 % (39.0-77.0); PLATELET COUNT 327 10^3/UL (140-415); RED BLOOD COUNT 3.49 10^6/ul (4.20-5.40); RED CELL DISTRIBUTION WIDTH 15.6 % (11.5-14.5); WHITE BLOOD COUNT 4.6 10^3/ul (4.8-10.8)
[2017-02-14] MEDS: DEXAMETHASONE 4 MG TAB PO SCH (05:55)
[2017-02-14 06:05] LABS: INR 1.04; PROTIME 13.6 Sec (12.2-14.2); PT RATIO 1.1
[2017-02-14 06:06] LABS: ALBUMIN 3.1 g/dl (3.3-4.9)
[2017-02-14 06:07] LABS: POTASSIUM 4.1 mmol/L (3.5-5.1)
[2017-02-14 06:09] LABS: ALBUMIN/GLOBULIN RATIO 0.86; BILIRUBIN,INDIRECT 0.2 mg/dl (0-1.1); BILIRUBIN,TOTAL 0.2 mg/dl (0.2-1.3); CREATININE 0.91 mg/dl (0.44-1.00); TOTAL PROTEIN 6.7 g/dl (6.1-8.1)
[2017-02-14 06:10] LABS: CALCIUM 9.1 mg/dl (8.4-10.2); MAGNESIUM 1.9 mg/dl (1.7-2.5)
[2017-02-14] MEDS: FAMOTIDINE 20 MG INJ IV SCH ×2 (08:50→21:20)
[2017-02-14] MEDS ORDERED: POTASSIUM CHLORIDE IV SCH ×2 (12:00→19:00)
[2017-02-14] MEDS ORDERED: SOD CHLORIDE 0.9% IV SCH ×4 (12:00→21:00)
--- NOTE | 2017-02-14 12:32 | PN ---
Date/Time of Note Date/Time of Note DATE: 02/14/17 TIME: 12:29 Assessment/Plan VTE Prophylaxis VTE Prophylaxis Intervention: SCD's Lines/Catheters IV Catheter Type (from Nrs): PICC Line Central line still needed: Yes Urinary Cath still in place: Yes Reason Cath still needed: urinary retention Assessment/Plan Chief Complaint/Hosp Course Ovarian cancer/MMMT IIc Problems: Assessment/Plan A - tolerating chemo P - possibly d/c later today or a.m. Subjective 24 Hr Interval Summary Free Text/Dictation Eating OK. tolerating chemo well. Exam/Review of Systems Vital Signs Vitals Vital Signs Date Time Temp Pulse Resp B/P Pulse Ox O2 Delivery O2 Flow Rate FiO2 02/14/17 07:45 97.9 65 18 129/64 93 Intake and Output 02/13/17 02/13/17 02/14/17 15:00 23:00 07:00 Intake Total 1520 ml 1730 ml Output Total 1200 ml 1825 ml Balance 320 ml -95 ml Exam Resp- clear CVS- NST Abd- soft NT Ext- NT Results Result Diagram: 02/14/17 0500 02/14/17 0432 Results 24 hrs Laboratory Tests Test 02/14/17 04:32 02/14/17 05:00 Prothrombin Time 13.6 Prothrombin Time Ratio 1.1 INR International Normalized Ratio 1.04 Sodium Level 141 Potassium Level 4.1 Chloride Level 112 H Carbon Dioxide Level 27 Anion Gap 6 L Blood Urea Nitrogen 12 Creatinine 0.91 Glucose Level 160 Calcium Level 9.1 Magnesium Level 1.9 Total Bilirubin 0.2 Direct Bilirubin 0.00 Indirect Bilirubin 0.2 Aspartate Amino Transf (AST/SGOT) 33 Alanine Aminotransferase (ALT/SGPT) 40 Alkaline Phosphatase 70 Total Protein 6.7 Albumin 3.1 L Globulin 3.60 H Albumin/Globulin Ratio 0.86 White Blood Count 4.6 L Red Blood Count 3.49 L Hemoglobin 10.2 L Hematocrit 32.1 L Mean Corpuscular Volume 92.0 Mean Corpuscular Hemoglobin 29.2 Mean Corpuscular Hemoglobin Concent 31.8 L Red Cell Distribution Width 15.6 H Platelet Count 327 Mean Platelet Volume 10.3 Neutrophils % 87.3 H Lymphocytes % 10.4 L Monocytes % 1.7 Eosinophils % 0.0 Basophils % 0.4 Nucleated Red Blood Cells % 0.0 Neutrophils # 4.0 Lymphocytes # 0.5 L Monocytes # 0.1 L Eosinophils # 0.0 Basophils # 0.0 Nucleated Red Blood Cells # 0.0 Medications Medications Current Medications Ondansetron HCl (Zofran Inj) 4 mg Q6H PRN IV NAUSEA AND/OR VOMITING Last administered on 02/09/17 14:21; Admin Dose 4 MG; Start 02/02/17 at 21:30 Famotidine 20 mg 20 mg Q12 IV Last administered on 02/14/17 08:50; Admin Dose 20 MG; Start 02/03/17 at 09:00 Potassium Chloride/Lactated Ringer's (KCl/Lr) 1,010 ml @ 40 mls/hr Q24H IV Last administered on 02/13/17 12:02; Admin Dose 40 MLS/HR; Start 02/02/17 at 21 :11 IV Flush (NS 10 ml) 10 ml PRN PRN IV FLUSH LINE; Start 02/12/17 at 19:00 Tramadol HCl 50 mg 50 mg Q6H PRN PO PAIN Last administered on 02/13/17 22:38; Admin Dose 50 MG; Start 02/13/17 at 13:00 Potassium Chloride/Sodium Chloride (KCl/NS) 501.25 ml @ 250 mls/ hr 12 IV ; Start 02/14/17 at 12:00; Stop 02/14/17 at 14:01 Diphenhydramine HCl (Benadryl) 25 mg 14 IV ; Start 02/14/17 at 14:00; Stop 02/14 at 14:01 Famotidine 20 mg 20 mg 14 IV ; Start 02/14/17 at 14:00; Stop 02/14/17 at 14:01 Ondansetron HCl/ Dexamethasone/ Sodium Chloride (Zofran Inj/ Decadron/NS) 63 ml @ 130 mls/hr 14 IVPB ; Start 02/14/17 at 14:00; Stop 02/14/17 at 14:30 Lorazepam (Ativan) 0.5 mg 1430 IV ; Start 02/14/17 at 14:30; Stop 02/14/17 at 14 :31 Lorazepam 0.5 mg 0.5 mg Q8H PRN IV NAUSEA/VOMITING; Start 02/14/17 at 22:00 Paclitaxel 300 mg/ Paclitaxel 45 mg/ Sodium Chloride 500 ml @ 167 mls/hr 16 IV ; Start 02/14/17 at 16:00; Stop 02/14/17 at 19:00 Potassium Chloride 5 meq/ Sodium Chloride 1,002.5 ml @ 100 mls/ hr Q10H2M IV ; Start 02/14/17 at 19:00; Stop 02/14/17 at 22:00 Carboplatin/ Sodium Chloride (CARBOplatin/NS) 310 ml @ 310 mls/hr 21 IV ; Start 02/14/17 at 21:00; Stop 02/14/17 at 21:59 CALE MITCHELL MD February 14, 2017 12:32
--- NOTE | 2017-02-14 13:17 | PN ---
Date/Time of Note Date/Time of Note DATE: 02/14/17 TIME: 13:16 Assessment/Plan VTE Prophylaxis VTE Prophylaxis Intervention: other Lines/Catheters IV Catheter Type (from Nrsg): PICC Line Central line still needed: Yes Urinary Cath still in place: Yes Reason Cath still needed: skin wounds contaminated by urine Assessment/Plan Chief Complaint/Hosp Course - Locally advanced ovarian cancer with pelvic mass, status post surgery. Continue IV fluids. Continue Zofran p.r.n. for nausea and start [place] as needed for pain since patient's is tolerating p.o. well. Patient's condition and plan of care discussed at the bedside with patient patient and Dr. Fariba Alaniz. Plan for PICC line insertion and started chemotherapy, case management for authorization of second cycle of chemotherapy per patient insurance. Problems: Subjective 24 Hr Interval Summary Free Text/Dictation Patient has no complaints Exam/Review of Systems Vital Signs Vitals Vital Signs Date Time Temp Pulse Resp B/P Pulse Ox O2 Delivery O2 Flow Rate FiO2 02/14/17 07:45 97.9 65 18 129/64 93 Intake and Output 02/13/17 02/13/17 02/14/17 14:59 22:59 06:59 Intake Total 1520 ml 1730 ml Output Total 1200 ml 1825 ml Balance 320 ml -95 ml Exam Constitutional: well developed Head: atraumatic, normocephalic Neck: supple Respiratory: clear to auscultation Cardiovascular: regular rate and rhythm Gastrointestinal: non-tender, soft Extremities: normal pulses Results Result Diagram: 02/14/17 0500 02/14/17 0432 Results 24 hrs Laboratory Tests Test 02/14/17 04:32 02/14/17 05:00 Prothrombin Time 13.6 Prothrombin Time Ratio 1.1 INR International Normalized Ratio 1.04 Sodium Level 141 Potassium Level 4.1 Chloride Level 112 H Carbon Dioxide Level 27 Anion Gap 6 L Blood Urea Nitrogen 12 Creatinine 0.91 Glucose Level 160 Calcium Level 9.1 Magnesium Level 1.9 Total Bilirubin 0.2 Direct Bilirubin 0.00 Indirect Bilirubin 0.2 Aspartate Amino Transf (AST/SGOT) 33 Alanine Aminotransferase (ALT/SGPT) 40 Alkaline Phosphatase 70 Total Protein 6.7 Albumin 3.1 L Globulin 3.60 H Albumin/Globulin Ratio 0.86 White Blood Count 4.6 L Red Blood Count 3.49 L Hemoglobin 10.2 L Hematocrit 32.1 L Mean Corpuscular Volume 92.0 Mean Corpuscular Hemoglobin 29.2 Mean Corpuscular Hemoglobin Concent 31.8 L Red Cell Distribution Width 15.6 H Platelet Count 327 Mean Platelet Volume 10.3 Neutrophils % 87.3 H Lymphocytes % 10.4 L Monocytes % 1.7 Eosinophils % 0.0 Basophils % 0.4 Nucleated Red Blood Cells % 0.0 Neutrophils # 4.0 Lymphocytes # 0.5 L Monocytes # 0.1 L Eosinophils # 0.0 Basophils # 0.0 Nucleated Red Blood Cells # 0.0 Medications Medications Current Medications Ondansetron HCl (Zofran Inj) 4 mg Q6H PRN IV NAUSEA AND/OR VOMITING Last administered on 02/09/17 14:21; Admin Dose 4 MG; Start 02/02/17 at 21:30 Famotidine 20 mg 20 mg Q12 IV Last administered on 02/14/17 08:50; Admin Dose 20 MG; Start 02/03/17 at 09:00 Potassium Chloride/Lactated Ringer's (KCl/Lr) 1,010 ml @ 40 mls/hr Q24H IV Last administered on 02/13/17 12:02; Admin Dose 40 MLS/HR; Start 02/02/17 at 21 :11 IV Flush (NS 10 ml) 10 ml PRN PRN IV FLUSH LINE; Start 02/12/17 at 19:00 Tramadol HCl 50 mg 50 mg Q6H PRN PO PAIN Last administered on 02/13/17 22:38; Admin Dose 50 MG; Start 02/13/17 at 13:00 Potassium Chloride/Sodium Chloride (KCl/NS) 501.25 ml @ 250 mls/ hr 12 IV Last administered on 02/14/17 13:00; Admin Dose 250 MLS/HR; Start 02/14/17 at 12:00; Stop 02/14/17 at 14:01 Diphenhydramine HCl (Benadryl) 25 mg 14 IV ; Start 02/14/17 at 14:00; Stop 02/14 at 14:01 Famotidine 20 mg 20 mg 14 IV ; Start 02/14/17 at 14:00; Stop 02/14/17 at 14:01 Ondansetron HCl/ Dexamethasone/ Sodium Chloride (Zofran Inj/ Decadron/NS) 63 ml @ 130 mls/hr 14 IVPB ; Start 02/14/17 at 14:00; Stop 02/14/17 at 14:30 Lorazepam (Ativan) 0.5 mg 1430 IV ; Start 02/14/17 at 14:30; Stop 02/14/17 at 14 :31 Lorazepam 0.5 mg 0.5 mg Q8H PRN IV NAUSEA/VOMITING; Start 02/14/17 at 22:00 Paclitaxel 300 mg/ Paclitaxel 45 mg/ Sodium Chloride 500 ml @ 167 mls/hr 16 IV ; Start 02/14/17 at 16:00; Stop 02/14/17 at 19:00 Potassium Chloride 5 meq/ Sodium Chloride 1,002.5 ml @ 100 mls/ hr Q10H2M IV ; Start 02/14/17 at 19:00; Stop 02/14/17 at 22:00 Carboplatin/ Sodium Chloride (CARBOplatin/NS) 310 ml @ 310 mls/hr 21 IV ; Start 02/14/17 at 21:00; Stop 02/14/17 at 21:59 LAURA SONI February 14, 2017 13:17
[2017-02-14] MEDS ORDERED: FAMOTIDINE 20 MG INJ IV SCH (14:00)
[2017-02-14] MEDS ORDERED: DEXAMETHASONE 4 MG TAB PO SCH (14:00)
[2017-02-14] MEDS ORDERED: ONDANSETRON INJ 16 MG, DEXAMETHASONE 4 MG/ML 20 MG in SOD CHLORIDE 0.9% 50 ML IVPB SCH (14:00)
[2017-02-14] MEDS ORDERED: DIPHENHYDRAMINE 50 MG INJ IV SCH (14:00)
[2017-02-14] MEDS ORDERED: LORAZEPAM 2 MG INJ IV SCH (14:30)
[2017-02-14] MEDS ORDERED: EPINEPHrine 1 MG INJ SC PRN (15:30)
[2017-02-14] MEDS ORDERED: ATROPINE 1 MG/10 ML SYRINGE IV PRN (15:30)
[2017-02-14] MEDS ORDERED: PACLITAXEL IV SCH (16:00)
[2017-02-14] MEDS ORDERED: CARBOPLATIN IV SCH (21:00)
[2017-02-14] MEDS: traMADol 50 MG TAB PO PRN (21:28)
[2017-02-14] MEDS ORDERED: LORAZEPAM 2 MG INJ IV PRN (22:00)
[2017-02-15 00:15] VITALS: BP 119/64; PULSE 90; RESP 18
[2017-02-15 00:40] VITALS: BP 123/68; PULSE 85; RESP 18
[2017-02-15] MEDS: POTASSIUM CHLORIDE 20 MEQ in LACTATED RINGER'S 1,000 ML IV SCH ×2 (00:43→23:45)
[2017-02-15 00:52] VITALS: BP 116/60; PULSE 82; RESP 18
[2017-02-15 06:08] VITALS: BP 131/69; PULSE 83; RESP 18
[2017-02-15 08:16] VITALS: BP 114/58; RESP 18
--- NOTE | 2017-02-15 10:38 | PN ---
Date/Time of Note Date/Time of Note DATE: 02/15/17 TIME: 10:38 Assessment/Plan VTE Prophylaxis VTE Prophylaxis Intervention: other Lines/Catheters IV Catheter Type (from Nrsg): PICC Line Central line still needed: Yes Urinary Cath still in place: Yes Reason Cath still needed: skin wounds contaminated by urine Assessment/Plan Chief Complaint/Hosp Course - Locally advanced ovarian cancer with pelvic mass, status post surgery. Continue IV fluids. Continue Zofran p.r.n. for nausea and start [place] as needed for pain since patient's is tolerating p.o. well. Patient's condition and plan of care discussed at the bedside with patient patient and Dr. Fariba Alaniz. Plan for PICC line insertion and started chemotherapy, case management for authorization of second cycle of chemotherapy per patient insurance. Problems: Subjective 24 Hr Interval Summary Free Text/Dictation Patient is tolerating chemotherapy Exam/Review of Systems Vital Signs Vitals Vital Signs Date Time Temp Pulse Resp B/P Pulse Ox O2 Delivery O2 Flow Rate FiO2 02/15/17 08:16 98.0 72 18 114/58 97 02/15/17 06:08 Room Air Intake and Output 02/14/17 02/14/17 02/15/17 15:00 23:00 07:00 Intake Total 1710 ml 1090 ml Output Total 1000 ml 3400 ml Balance 710 ml -2310 ml Exam Constitutional: well developed Head: atraumatic, normocephalic Neck: supple Cardiovascular: regular rate and rhythm Gastrointestinal: non-tender, soft Extremities: normal pulses Results Result Diagram: 02/14/17 0500 02/14/17 0432 Medications Medications Current Medications Ondansetron HCl (Zofran Inj) 4 mg Q6H PRN IV NAUSEA AND/OR VOMITING Last administered on 02/09/17 14:21; Admin Dose 4 MG; Start 02/02/17 at 21:30 Famotidine 20 mg 20 mg Q12 IV Last administered on 02/14/17 21:20; Admin Dose 20 MG; Start 02/03/17 at 09:00 Potassium Chloride/Lactated Ringer's (KCl/Lr) 1,010 ml @ 40 mls/hr Q24H IV Last administered on 02/15/17 00:43; Admin Dose 40 MLS/HR; Start 02/02/17 at 21 :11 IV Flush (NS 10 ml) 10 ml PRN PRN IV FLUSH LINE; Start 02/12/17 at 19:00 Tramadol HCl (Ultram) 50 mg Q6H PRN PO PAIN Last administered on 02/14/17t 21: 28; Admin Dose 50 MG; Start 02/13/17 at 13:00 Lorazepam (Ativan) 0.5 mg Q8H PRN IV NAUSEA/VOMITING; Start 02/14/17 at 22:00 Epinephrine (EPINEPHrine) 0.5 mg PRN PRN SC ANAPHYLAXTIC RXN TO CHEMO....; Start 02/14/17 at 15:30; Stop 02/15/17 at 15:29 Atropine Sulfate (Atropine (Syringe)) 1 mg ONCE PRN IV SYMPTOMATIC BRADYCARDIA ; Start 02/14/17 at 15:30; Stop 02/15/17 at 15:29 LAURA SONI February 15, 2017 10:38
[2017-02-15] MEDS: FAMOTIDINE 20 MG INJ IV SCH ×2 (11:30→21:52)
[2017-02-15] MEDS: ONDANSETRON 4 MG INJ IV PRN (12:00)
[2017-02-15 20:42] VITALS: BP 145/79; RESP 16
[2017-02-15] MEDS: traMADol 50 MG TAB PO PRN (23:41)
[2017-02-16 05:15] LABS: ADD SCAN DIFF NO
[2017-02-16 05:20] LABS: BASOPHILS % 0.3 % (0.0-2.0); HEMATOCRIT 28.1 % (37.0-47.0); HEMOGLOBIN 8.8 g/dl (12.0-16.0); LYMPHOCYTES # 1.8 10^3/ul (0.8-2.9); LYMPHOCYTES % 29.1 % (15.0-51.0); MEAN CORPUSCULAR HEMOGLOBIN 28.8 pg (29.0-33.0); MEAN CORPUSCULAR HGB CONC 31.3 g/dl (32.0-37.0); MEAN CORPUSCULAR VOLUME 91.8 fl (82.0-101.0); MEAN PLATELET VOLUME 10.8 fl (7.4-10.4); MONOCYTE # 0.2 10^3/ul (0.3-0.9); MONOCYTES % 3.9 % (0.0-11.0); NEUTROPHILS % 66.4 % (39.0-77.0); PLATELET COUNT 278 10^3/UL (140-415); RED BLOOD COUNT 3.06 10^6/ul (4.20-5.40); RED CELL DISTRIBUTION WIDTH 16.4 % (11.5-14.5); WHITE BLOOD COUNT 6.1 10^3/ul (4.8-10.8)
[2017-02-16 05:41] LABS: POTASSIUM 3.9 mmol/L (3.5-5.1)
[2017-02-16 05:43] LABS: CREATININE 0.87 mg/dl (0.44-1.00)
[2017-02-16 05:44] LABS: CALCIUM 8.4 mg/dl (8.4-10.2)
[2017-02-16 08:46] VITALS: BP 110/57; RESP 18
[2017-02-16] MEDS: FAMOTIDINE 20 MG INJ IV SCH (09:01)
[2017-02-16] MEDS: traMADol 50 MG TAB PO PRN (12:43)
--- NOTE | 2017-02-17 05:53 | DS ---
DATE OF ADMISSION: 02/02/2017 DATE OF DISCHARGE: 02/16/2017 DISCHARGE DIAGNOSIS: Ovarian cancer, status post surgery, status post chemo. DISCHARGE MEDICATIONS: 1. Ultram 50 mg q. 6 p.r.n. 2. Zofran 4 mg q. 6 p.r.n. FOLLOWUP: The patient is to have followup with Dr. Paul as an outpatient and follow with PMD in 1 to 2 weeks. Follow up with a medical oncologist which will be arranged by community case manager. REASON FOR ADMISSION: The patient is a 61-year-old woman who was seen by Dr. Paul as an outpati ent. The patient was diagnosed with locally advanced ovarian cancer with pelvic mass. The patient was taken to OR and underwent open abdominal total hysterectomy with bilateral salpingo-oophorectomy . The patient was initially kept n.p.o. with NG tube in place, and once her bowel function returned , the patient was started on clear liquid diet which was advanced as tolerated. The patient was giv en IV fluids and symptomatic treatment. The patient's kidney function improved, and the creatinine was down from 1 on the day of admission to 0.87 on the day of discharge. The patient was started on diet. The patient was also given chemotherapy in the form of paclitaxel. On 02/14/2017, the patie nt was seen by Dr. Paul and was cleared for discharge. On the day of discharge, the patient's v ital signs remain stable. Temperature 98.5, pulse 63, respirations 18, blood pressure 110/57, O2 sa turation 94% on room air. LABORATORY DATA: Revealed a sodium 143, potassium 3.9, BUN 17, creatinine 0.8, glucose 78. WBC thi s morning 6.1, hemoglobin 8.8, platelets 278. CONDITION ON DISCHARGE: Stable. DIET: As tolerated. Dictated By: KIANA HERRERA/KHAI Conf#: [id number] DID#: [id number]
== END 2017-02-16 15:06 | disposition home health service (06) | DRG 734 ==
LOC: REC 12:18 → ICU 02-03 00:12 → MS1 02-03 12:09
PROVIDERS: ATTEND Internal Medicine
PROC: 07TD0ZZ Resection of Aortic Lymphatic, Open Approach (ICD-10-PCS; 2017-02-02)
PROC: 07TC0ZZ Resection of Pelvis Lymphatic, Open Approach (ICD-10-PCS; 2017-02-02)
PROC: 0UT20ZZ Resection of Bilateral Ovaries, Open Approach (ICD-10-PCS; 2017-02-02)
PROC: 0UT70ZZ Resection of Bilateral Fallopian Tubes, Open Approach (ICD-10-PCS; 2017-02-02)
PROC: 0WJJ4ZZ Inspection of Pelvic Cavity, Percutaneous Endoscopic Approach (ICD-10-PCS; 2017-02-02)
PROC: 0WJH4ZZ Inspection of Retroperitoneum, Percutaneous Endoscopic Approach (ICD-10-PCS; 2017-02-02)
PROC: 0WJG4ZZ Inspection of Peritoneal Cavity, Percutaneous Endoscopic Approach (ICD-10-PCS; 2017-02-02)
PROC: 0DTS0ZZ (ICD-10-PCS; 2017-02-02)
PROC: 0UTC0ZZ Resection of Cervix, Open Approach (ICD-10-PCS; 2017-02-02)
PROC: 30233N1 Transfusion of Nonautologous Red Blood Cells into Peripheral Vein, Percutaneous Approach (ICD-10-PCS; 2017-02-02)
PROC: 30233K1 Transfusion of Nonautologous Frozen Plasma into Peripheral Vein, Percutaneous Approach (ICD-10-PCS; 2017-02-02)
PROC: 0UT90ZZ Resection of Uterus, Open Approach (ICD-10-PCS; principal; 2017-02-02 15:30)
PROC: 3E04305 Introduction of Other Antineoplastic into Central Vein, Percutaneous Approach (ICD-10-PCS; 2017-02-14)
DX: C56.2 Malignant neoplasm of left ovary (principal); C79.82 Secondary malignant neoplasm of genital organs
CPT/HCPCS: 36430; 71010; 76937; 80048; 80053; 82962; 83735; 85025; 85610; 86850; 86900; 86901; 86920; 87081; 87086; 88104; 88307; 88331; J9267; A4310; J0690; J1100; J1170; J1200; J2060; J2250; J2274; J2370; J2405; J2710; J2765; J3010; J3480; J7030; J7040; J7050; J7120; J9045; P9016; P9059

== ENCOUNTER 2017-02-18 10:48 | Emergency (ER) | payer OTHER ==
[~2017-02-18] VITALS: Ht 177.8 cm; Wt 79.0 kg
[~2017-02-18 10:48] MED LIST: BUTA1CAP38 PO; LEVO250T9 PO; METR250T19 PO
[2017-02-18 10:54] VITALS: Ht 177.8 cm; Wt 79.0 kg
[2017-02-18 11:43] LABS: ADD SCAN DIFF NO
[2017-02-18] MEDS ORDERED: ONDA4TAB8 PO (11:48)
[2017-02-18] MEDS ORDERED: TRAM50TA2 PO (11:48)
[2017-02-18 11:50] LABS: BASOPHILS % 0.5 % (0.0-2.0); EOSINOPHILS # 0.3 10^3/ul (0.0-0.5); EOSINOPHILS % 6.2 % (0.0-7.0); HEMATOCRIT 32.7 % (37.0-47.0); HEMOGLOBIN 10.3 g/dl (12.0-16.0); LYMPHOCYTES # 0.7 10^3/ul (0.8-2.9); LYMPHOCYTES % 16.4 % (15.0-51.0); MEAN CORPUSCULAR HEMOGLOBIN 28.8 pg (29.0-33.0); MEAN CORPUSCULAR HGB CONC 31.5 g/dl (32.0-37.0); MEAN CORPUSCULAR VOLUME 91.3 fl (82.0-101.0); MEAN PLATELET VOLUME 11.1 fl (7.4-10.4); MONOCYTE # 0.1 10^3/ul (0.3-0.9); MONOCYTES % 1.2 % (0.0-11.0); NEUTROPHIL # 3.2 10^3/ul (1.6-7.5); NEUTROPHILS % 75.2 % (39.0-77.0); PLATELET COUNT 269 10^3/UL (140-415); RED BLOOD COUNT 3.58 10^6/ul (4.20-5.40); RED CELL DISTRIBUTION WIDTH 15.6 % (11.5-14.5); WHITE BLOOD COUNT 4.2 10^3/ul (4.8-10.8)
[2017-02-18 12:08] LABS: ALBUMIN 4.1 g/dl (3.3-4.9); ALBUMIN/GLOBULIN RATIO 1.41; BILIRUBIN,INDIRECT 0.7 mg/dl (0-1.1); BILIRUBIN,TOTAL 0.7 mg/dl (0.2-1.3); CALCIUM 9.2 mg/dl (8.4-10.2); CREATININE 0.85 mg/dl (0.44-1.00); POTASSIUM 3.6 mmol/L (3.5-5.1)
[2017-02-18] MEDS ORDERED: CEPH-443 PO (12:26)
[2017-02-18] MEDS ORDERED: SULF1TAB31 PO (12:26)
--- NOTE | 2017-02-18 12:26 | ERD ---
ER Documentation Chief Complaint Date/Time DATE: 02/18/17 TIME: 12:23 Chief Complaint WOUND CHECK S/P SURGERY FOR OVARIAN CA HPI This is a 61-year-old female who presents to the emergency room for evaluation of redness around her incision site. This patient did have a laparoscopic hysterectomy with BSO done on February [address] Busby for advanced ovarian cancer. She states that she is to receive chemotherapy via PICC line starting next week. She states that she was told by either a nurse or a doctor that she needs to come to the emergency room for evaluation of redness around her incision site. The patient denies any fever abdominal pain or discharge from the incision sites. ROS All systems reviewed and are negative except as per history of present illness. Medications Home Meds Reported Medications Tramadol HCl (Tramadol HCl) 50 Mg Tablet, 50 MG PO Q6H Y for PAIN, #120 TAB 02/18/17 Ondansetron Hcl* (Zofran*) 4 Mg Tablet, 4 MG PO Q6H Y for NAUSEA AND OR VOMITING , TAB 02/18/17 Discontinued Reported Medications Levofloxacin* (Levofloxacin*) 250 Mg Tablet, 250 MG PO DAILY, TAB FOR 2 DAYS 02/02/17 Metronidazole* (Metronidazole*) 250 Mg Tablet, 250 MG PO DAILY, TAB FOR 2 DAYS 02/02/17 Ozaivuuptu-Hfdsgdbxvshuz-Ieylyrlx* (Fioricet*) 50-300-40 Mg Capsule, 1 CAP PO Q12 Y for PAIN, CAP 02/02/17 Allergies Allergies: Coded Allergies: No Known Allergy (Unverified , 02/18/17) PMhx/Soc History of Surgery: Yes (APPENDECTOMY, L LEG VARICOSS VAIN SX, OVARIAN CA SX) Anesthesia Reaction: No Hx Neurological Disorder: No Hx Respiratory Disorders: No Hx Cardiac Disorders: Yes (OVARIAN) Hx Psychiatric Problems: No Hx Miscellaneous Medical Probl: Yes (stage 1 obesity) Hx Alcohol Use: No Hx Substance Use: No Hx Tobacco Use: No Smoking Status: Never smoker Physical Exam Vitals Vital Signs Date Time Temp Pulse Resp B/P Pulse Ox O2 Delivery O2 Flow Rate FiO2 02/18/17 10:54 97.7 95 18 100/59 100 Physical Exam Const: No acute distress Head: Atraumatic Eyes: Normal Conjunctiva ENT: Normal External Ears, Nose and Mouth. Neck: Full range of motion..~ No meningismus. Resp: Clear to auscultation bilaterally Cardio: Regular rate and rhythm, no murmurs Abd: Soft, non tender, non distended. Normal bowel sounds Skin: [place] in place Umbilicus, small amount of erythema, no skin sloughing, no purulent discharge no petechiae or rashes Back: No midline or flank tenderness Ext: No cyanosis, or edema Neur: Awake and alert Psych: Normal Mood and Affect Result Diagram: 02/18/17 1125 02/18/17 1125 Results 24 hrs Laboratory Tests Test 02/18/17 11:25 White Blood Count 4.210^3/ul Red Blood Count 3.5810^6/ul Hemoglobin 10.3g/dl Hematocrit 32.7% Mean Corpuscular Volume 91.3fl Mean Corpuscular Hemoglobin 28.8pg Mean Corpuscular Hemoglobin Concent 31.5g/dl Red Cell Distribution Width 15.6% Platelet Count 66030^3/UL Mean Platelet Volume 11.1fl Neutrophils % 75.2% Lymphocytes % 16.4% Monocytes % 1.2% Eosinophils % 6.2% Basophils % 0.5% Nucleated Red Blood Cells % 0.0/100WBC Neutrophils # 3.210^3/ul Lymphocytes # 0.710^3/ul Monocytes # 0.110^3/ul Eosinophils # 0.310^3/ul Basophils # 0.010^3/ul Nucleated Red Blood Cells # 0.010^3/ul Sodium Level 134mmol/L Potassium Level 3.6mmol/L Chloride Level 100mmol/L Carbon Dioxide Level 26mmol/L Anion Gap 12 Blood Urea Nitrogen 16mg/dl Creatinine 0.85mg/dl Glucose Level 105mg/dl Calcium Level 9.2mg/dl Total Bilirubin 0.7mg/dl Direct Bilirubin 0.00mg/dl Indirect Bilirubin 0.7mg/dl Aspartate Amino Transf (AST/SGOT) 39IU/L Alanine Aminotransferase (ALT/SGPT) 39IU/L Alkaline Phosphatase 61IU/L Total Protein 7.0g/dl Albumin 4.1g/dl Globulin 2.90g/dl Albumin/Globulin Ratio 1.41 Lipase 200U/L Current Medications Medications (Trade) Dose Ordered Sig/Clay Route PRN Reason Start Time Stop Time Status Last Admin Dose Admin Trimethoprim/ Sulfamethoxazole (Bactrim (Ds)) 1 tab ONCE ONCE PO 02/18/17 12:30 02/18/17 12:31 Cephalexin (Keflex) 500 mg ONCE ONCE PO 02/18/17 12:30 02/18/17 12:31 Procedures/MDM This 61-year-old female presents to the emergency room for evaluation of erythema over her incision site. I evaluated this patient. She was afebrile, not tachycardic, not hypotensive with no signs of systemic infection. Lab work does not reveal any leukocytosis. This patient is in no acute distress. I did give this patient Bactrim, and Keflex. This patient has what appears to be a superficial cellulitis with no signs of abscess formation. I did call her surgeon, Dr. Busby who states patient can follow-up in his office. The patient will be discharged at this time with instructions to follow-up in his office for outpatient reevaluation. Departure Diagnosis: Primary Impression: Encounter for postoperative wound check Additional Impression: Normocytic anemia Condition: Stable PRADIP LORA DO Feb 18, 2017 12:26
[2017-02-18] MEDS ORDERED: TRIMETHOPRIM/SULFAMETHOX (DS) TAB PO ONE (12:30)
[2017-02-18] MEDS ORDERED: CEPHALEXIN 500 MG CAP PO ONE (12:30)
[2017-02-18 12:50] VITALS: BP 110/65; PULSE 72; RESP 18
== END 2017-02-18 12:50 | disposition home or self-care (01) ==
LOC: E/R 10:48
DX: Z48.01 Encounter for change or removal of surgical wound dressing (principal); L53.9 Erythematous condition, unspecified; D64.9 Anemia, unspecified; C56.9 Malignant neoplasm of unspecified ovary
CPT/HCPCS: 80053; 83690; 85025; Z7610; 36415; 99284